=== PATIENT | female | born 1995 | race Caucasian/White ===

== ENCOUNTER 2023-09-05 17:59 | Emergency (ER) | payer BC, SELFPAY ==
--- NOTE | ~2023-09-05 | US_ITS ---
EXAMINATION: US OB <= 14 weeks fetus DATE: 09/05/2023 23:33 INDICATION: Vaginal bleeding at the transition from the first to the second trimester of TECHNIQUE: Real-time pelvic ultrasound utilizing both a transvaginal and transabdominal probe was pe rformed. The interpreting radiologist was not present for the study. COMPARISON: None. FINDINGS: The uterus measures 13.3 x 6.8 x 8.6 cm. There is an intrauterine gestational sac. A yolk sac and fe patria pole are identified. The crown rump length measures 3.8 cm, which correlates with an estimated ge stational age of 13 weeks and 0 days. heart motion is identified measuring 165 beats per minute (bpm) by M-mode Doppler. The placenta appears to be developing posteriorly with no evident subchorio claudia hematoma. The right ovary measures 2.7 x 2.4 x 2.4 cm. The left ovary is not visualized. There is no free fluid in the pelvis. IMPRESSION: 1. Single living fetus with heart of 165 bpm. 2. Gestational age by ultrasound of 13 weeks 0 day(s) +/- 1 week and 1 day with ultrasound estimated date of delivery (GARRETT) of 03/12/2024. Reviewed, dictated and finalized at location A. E TENDER IMPRESSION: 1. Single living fetus with heart of 165 bpm. 2. Gestational age by ultrasound of 13 weeks 0 day(s) +/- 1 week and 1 day wit h ultrasound estimated date of delivery (GARRETT) of 03/12/2024.
[2023-09-05 18:13] VITALS: BP 112/73; PULSE 97; RESP 18; TEMP 36.6; O2SAT 100
[2023-09-05 18:35] LABS: Basophils Percent Auto 0.1 % (0.2-1.2); Eosinophils Percent Auto 0.2 % (0-4.4); Hematocrit 38.2 % (37.0-47.0); Hemoglobin 12.9 g/dL (12.0-15.0); Immature Granulocyte Absolute 0.08 K/mm3 (0.00-0.031); Immature Granulocyte Percent A 0.5 % (0-0.5); Lymphocytes Absolute Auto 3.02 K/mm3 (0.9-3.2); Lymphocytes Percent Auto 17.2 % (18.3-44.2); Mean Corpuscular HGB Conc 33.8 g/dl (32-36); Mean Corpuscular Hemoglobin 30.2 pg (26-34); Mean Corpuscular Volume 89.5 fl (80-100); Mean Platelet Volume 9.2 fl (7.4-10.4); Monocytes Absolute Auto 0.7 K/mm3 (0.1-0.6); Monocytes Percent Auto 3.9 % (2.6-8.5); Neutrophils Absolute Auto 13.8 K/mm3 (1.3-6.7); Neutrophils Percent Auto 78.1 % (45.5-73.1); Platelet Count Result 272 k/mm3 (150-375); Red Blood Count 4.27 M/mm3 (4.2-5.4); Red Cell Distribution Width 12.5 % (11.5-14.5); White Blood Count 17.6 K/mm3 (4.5-10.0)
[2023-09-05 18:45] LABS: Alanine Aminotransferase 15 U/L (6-35); Albumin Level 4.4 g/dL (3.5-5.1); Alkaline Phosphatase 68 U/L (38-126); Anion Gap 6 mmol/L (8-16); Aspartate Amino Transferase 24 U/L (14-36); Bilirubin,Total 0.3 mg/dL (0.2-1.3); Blood Urea Nitrogen 8 mg/dL (7-17); Calcium 9.5 mg/dL (8.4-10.2); Carbon Dioxide 25 mmol/L (22-30); Chloride 104 mmol/L (98-107); Estimated CRCL calculation 156 ml/min; Estimated Glomerular Filt Rate > 60; Glucose 110 mg/dL (65-110); Potassium 3.6 mmol/L (3.4-5.0); Sodium 135 mmol/L (137-145)
[2023-09-05 18:46] LABS: INR 0.9; Prothrombin Time 12.9 Seconds (11.1-14.7)
[2023-09-05 18:47] LABS: Partial Thromboplastin Time 30.1 SECONDS (22.3-36.8)
[2023-09-05 18:49] LABS: Appearance Urine Clear (Clear); Bacteria Urine None Seen /hpf; Bilirubin Urine Negative (Negative); Blood Urine 2+ (Negative); Color Urine Yellow (Yellow); Glucose Urine UA Negative (Negative); Ketones Urine 1+ mg/dL (Negative); Leukocyte Esterase Ur 1+ LEU/UL (Negative); Nitrate Urine Negative (Negative); Non Pathogenic Casts 0-2; Protein Urine Negative (Negative); RBC Urine 0-2 /hpf (0-2); Specific Grav Ur 1.011 (1.001-1.035); Squamous Epithelial Cell Urine Occasional /hpf (Few); Urobilinogen Urine 0.2 mg/dL (<2.0); WBC Urine 21-50 /hpf
[2023-09-05 18:53] LABS: Add Urine Microscopic? YES
--- NOTE | 2023-09-05 22:13 | ED.FEMALEGU ---
HPI - Female Genitourinary General Chief complaint: Vaginal Bleeding Stated complaint: 12 weeks /vb Time Seen by Provider: 09/05/23 21:20 History of Present Illness HPI Narrative: 28-year-old female, , approximately 12.5 weeks gestation reports for evaluation for vaginal bleeding in . Patient states yesterday she noticed pink/red tinged discharged. States she contacted her OBGYNs office who prescribed Flagyl for suspected BV advised her to come to the ER if bleeding worsen. Patient states today around 3-4:00 p.m., she began developing vaginal bleeding. States she has not required pad or tampon in the blood is only there when she wipes. She is also reporting abdominal cramping that started upon arrival to the ED. States she had an ultrasound performed at 8 weeks gestation which confirmed an intrauterine , however I do not have on file. Her OBGYN is Dr. Cm at [facility]. She denies concern for STDs, however does report a yellow foul-smelling discharge that is began in the past few weeks. 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 Denies dysuria or hematuria but does report urinary frequency. Denies fevers, chest pain shortness of breath, lightheadedness or dizziness. Related Data Allergies Allergy/AdvReac Type Severity Reaction Status Date / Time Penicillins AdvReac Rash Verified 09/05/23 18:17 Review of Systems Review of Systems: CONSTITUTIONAL: Denies fever, chills, or sweats. EYES: Denies visual changes, redness, or discharge. ENT: Denies rhinorrhea, congestion, sore throat, or otalgia. CARDIOVASCULAR: Denies chest pain, palpitations, or edema. RESPIRATORY: Denies cough or dyspnea. GASTROINTESTINAL: See HPI GENITOURINARY: See HPI SKIN: Denies rash or itching. MUSCULOSKELETAL: Denies back pain, joint pain, or myalgia. NEUROLOGIC: Denies headache, numbness, or weakness. PSYCHIATRIC: Denies anxiety or depression. Exam Narrative: GENERAL: Well-appearing, well-nourished, and in no acute distress. HEAD: Normocephalic, atraumatic. EYES: PERRLA and EOMI. ENT: Nares clear, no rhinorrhea or epistaxis. Mucous membranes moist. NECK: Supple. CHEST: Clear to auscultation. No respiratory distress. HEART: Regular rate and rhythm. No murmur heard. Normal peripheral pulses. ABDOMEN: Normoactive bowel sounds. Abdomen soft with tenderness in the suprapubic region with voluntary guarding. No rebound or rigidity. No CVA tenderness. : Normal external genitalia and vaginal canals. Scant amount of physiologic discharge and vaginal vault. No blood. Unable to visualize cervix. No CMT or adnexal masses or tenderness. EXTREMITIES: Normal range of motion. No edema. SKIN: Warm, dry, no rash. NEURO: No focal deficits. Alert and oriented x3 Course Vital Signs Vital signs: Vital Signs Temperature 97.8 F 09/05/23 18:13 Pulse Rate 97 09/05/23 18:13 Respiratory Rate 18 09/05/23 18:13 Blood Pressure 112/73 09/05/23 18:13 Pulse Oximetry 100 09/05/23 18:13 Oxygen Delivery Room Air 09/05/23 18:13 Temperature 97.8 F 09/05/23 18:13 Pulse Rate 66 09/05/23 22:37 Respiratory Rate 16 09/05/23 22:37 Blood Pressure 122/69 09/05/23 22:37 Pulse Oximetry 100 09/05/23 22:37 Oxygen Delivery Room Air 09/05/23 18:13 MDM - Female Genitourinary MDM Narrative Medical decision making narrative: 28-year-old female who is , currently 12 and half weeks gestation reports to the emergency department for evaluation for bleeding in . See HPI for further history. Vitals stable. She is nontoxic appearing. No bleeding and vaginal vault on exam, no CMT, see exam above. CBCs remarkable for leukocytosis of 17.6, no bandemia. May be secondary to . Hemoglobin is stable at 12.9. Chemistries are largely unremarkable. UA with 1+ ketones, 1+ leuk esterase and 21-50 wbc's. No bacteruria. She does e
[2023-09-05] MEDS: ACETAMINOPHEN 500 MG TABLET 1000 MG PO (22:34)
[2023-09-05] MEDS: SODIUM CHLORIDE 0.9% IV 1,000 ML 999 ML IV CONT (22:36)
[2023-09-05 22:37] VITALS: BP 122/69; PULSE 66; RESP 16; O2SAT 100
--- NOTE | 2023-09-05 23:51 | PC.NURSE ---
this rn assumed care of patient. this rn took patient report from JYOTSNA Delcid.
[2023-09-06 01:01] VITALS: BP 112/55; PULSE 84; RESP 18; O2SAT 100
== END 2023-09-06 01:10 | disposition home or self-care (01) ==
PROVIDERS: Emergency Medicine; Emergency Provider Physician Assistant; PCP Obstetrics & Gynecology
DX: O20.0 Threatened abortion (principal); O26.891 Other specified pregnancy related conditions, first trimester; R82.998 Other abnormal findings in urine; Z3A.12 12 weeks gestation of pregnancy
CPT/HCPCS: 36415; 76801; 80053; 81001; 84702; 85025; 85461; 85610; 85730; 86850; 86900; 86901; 87086; 96365; 99284; A9270; J0696; J7030

== ENCOUNTER 2023-09-09 01:13 | Observation (INO) | payer BC, SELFPAY ==
[2023-09-09] VITALS (8 sets, daily range): BP systolic 106–125; BP diastolic 50–90; PULSE 87–148; RESP 12–29; TEMP 36.5–37.1; O2SAT 97–100; BMI 25.8
--- NOTE | ~2023-09-09 | US_ITS ---
CORRECTED REPORT corrected examination description [facility] [place]/10/23 This report was recreated on 09/10/23. Original report was [facility] [facility] EXAMINATION: US OB <= 14 weeks fetus w TV DATE: 09/09/2023 16:37 INDICATION: Assess for retained products of conception TECHNIQUE: Real-time pelvic ultrasound utilizing both a transvaginal and transabdominal probe was performed. The interpreting radiologist was not present for the study. COMPARISON: 09/05/2023 FINDINGS: The uterus measures 11.2 x 5.5 x 5.7 cm. The previously visualized intrauterine gestational sac with fetus is no longer visualized consistent with provided history of intervening spontaneous . The endometrial complex is thickened measuring up to 2.7 cm more towards the lower uterine segment with heterogeneous increased echogenicity but without evident internal vascular flow on color Doppler to more specifically suggest retained products of conception and this could also represent residual clot.. Likely section scar along the anterior wall of the lower uterine segment. The bilateral ovaries are not visualized. There is no free fluid in the pelvis. IMPRESSION: 1. Interval spontaneous with no evident intrauterine . 2. Thickened heterogeneously hyperechoic endometrial complex but without evident internal vascular flow on color Doppler which remains equivocal for either clot or avascular retained products of conception. Reviewed, dictated and finalized at location A. FICIAL FLOWERS DYER MTDD IMPRESSION: 1. Interval spontaneous with no evident intrauterine . 2. Thickened heterogeneously hyperechoic endometrial complex but without eviden t internal vascular flow on color Doppler which remains equivocal for either cl ot or avascular retained products of conception.
--- NOTE | 2023-09-09 01:52 | ED.PREGNANCY ---
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 Patient is and currently 13 weeks gestation. She developed vaginal bleeding a few days ago and was seen in the ED on 09/05-09/06, at which time she had a normal ultrasound showing a live IUP. Patient had a follow-up with Dr. Cm, her gas brazer, on Thursday and again had a reassuring exam. On Thursday (09/08), she developed heavier vaginal bleeding. She began having lower abdominal pain and cramping around 6:00 p.m.. Pain became severe at 9:00 p.m.. She then prompted here. Patient reports she feels as though she is actively passing something. Denies nausea, vomiting. Denies fevers. Related Data Allergies Allergy/AdvReac Type Severity Reaction Status Date / Time Penicillins AdvReac Rash Verified 09/05/23 18:17 Review of Systems Review of Systems: CONSTITUTIONAL: Denies fever, chills, or sweats. CARDIOVASCULAR: Denies chest pain. RESPIRATORY: Denies dyspnea. GASTROINTESTINAL: See above. GENITOURINARY: See HPI. All systems reviewed & are unremarkable except as noted in HPI and below PMFSH Social History Social History Smoking status: Never smoker Alcohol intake: never Substance use: current Substance use type: does not use Do You Feel Safe in your Home?: Yes Lack of Transportation: No Lack of Food: Never True Current Housing: I Have Housing Concerned About Future Housing: No Difficulty Paying Gas/Electric Bills: No Difficulty Paying for Meds: No Currently Unemployed: No Education: Bachelor's Degree Difficulty w/ Childcare or Family Care: No Spiritual care concerns: No Exam Narrative: GENERAL: Well appearing, well-nourished, non-toxic, in no acute distress. HEAD: Normocephalic, atraumatic. RESPIRATORY: Airway patent, respirations nonlabored. CARDIOVASCULAR: Tachycardic with regular ABDOMINAL: Soft, nontender, nondistended. Normoactive BS. PELVIC: Amniotic sac visibly protruding from vaginal vault. MUSCULOSKELETAL: Moves all extremities. No gross deformities. SKIN: Warm, dry, normal color. NEURO: A&O X3. Speech clear. PSYCHIATRIC: Anxious, tearful. Normal interaction. Course Vital Signs Vital signs: Vital Signs Temperature 98.8 F 09/09/23 01:16 Respiratory Rate 18 09/09/23 01:16 Blood Pressure 118/50 L 09/09/23 01:16 Pulse Oximetry 98 09/09/23 01:16 Oxygen Delivery Room Air 09/09/23 01:16 Temperature 97.8 F 09/09/23 14:00 Pulse Rate 92 09/09/23 14:00 Respiratory Rate 16 09/09/23 14:00 Blood Pressure 110/60 09/09/23 14:00 Pulse Oximetry 100 09/09/23 14:00 Oxygen Delivery Room Air 09/09/23 08:10 MDM - OB/Uterine Contractions MDM Narrative Medical decision making narrative: Patient actively miscarrying upon my evaluation, visible amniotic sac coming from vagina. Patient fully passed amniotic sac. Dr. Lara, attending at bedside. Amniotic sac placed in specimen container. Will be sent to pathology. Patient with some secondary bleeding, vitals have remained stable. Pain medication given. Discussed case with Dr. Cm, OBGYN, advised if patient's pain and bleeding are persistent, can admit under her service, otherwise will have office call patient today to make f/u appointment. Patient with continued bleeding and fairly consistent pain. She is nervous about going home. Will admit at this time for further evaluation. She is in agreement with this plan. prn pain meds ordered. CBC without the content of 19.9. Hemoglobin 12.1. Beta quant down trending from most recent ED visit, today 31K. Medical Records Attestation: I reviewed t
[2023-09-09] MEDS: SODIUM CHLORIDE 0.9% IV 1,000 ML 999 ML IV CONT (02:02)
[2023-09-09] MEDS: MORPHINE SULFATE (*CRX) 4 MG/ML INJ IV PUSH (02:02)
[2023-09-09] MEDS: ONDANSETRON INJ 4 MG/2 ML VIAL IV PUSH (02:02)
[2023-09-09 02:11] LABS: Basophils Percent Auto 0.2 % (0.2-1.2); Eosinophils Percent Auto 0.2 % (0-4.4); Hemoglobin 12.1 g/dL (12.0-15.0); Immature Granulocyte Absolute 0.09 K/mm3 (0.00-0.031); Immature Granulocyte Percent A 0.5 % (0-0.5); Lymphocytes Absolute Auto 2.88 K/mm3 (0.9-3.2); Lymphocytes Percent Auto 14.5 % (18.3-44.2); Mean Corpuscular HGB Conc 33.6 g/dl (32-36); Mean Corpuscular Hemoglobin 29.9 pg (26-34); Mean Corpuscular Volume 88.9 fl (80-100); Mean Platelet Volume 9.6 fl (7.4-10.4); Monocytes Absolute Auto 1.1 K/mm3 (0.1-0.6); Monocytes Percent Auto 5.3 % (2.6-8.5); Neutrophils Absolute Auto 15.8 K/mm3 (1.3-6.7); Neutrophils Percent Auto 79.3 % (45.5-73.1); Platelet Count Result 316 k/mm3 (150-375); Red Blood Count 4.05 M/mm3 (4.2-5.4); Red Cell Distribution Width 12.6 % (11.5-14.5); White Blood Count 19.9 K/mm3 (4.5-10.0)
[2023-09-09] MEDS: HYDROmorphone HCL INJ (*CRX) 1 MG/ML SYR IV PUSH ×2 (02:14→03:58)
[2023-09-09 02:28] LABS: Appearance Urine Clear (Clear); Bacteria Urine None Seen /hpf; Bilirubin Urine Negative (Negative); Blood Urine 1+ (Negative); Color Urine Yellow (Yellow); Glucose Urine UA Negative (Negative); Ketones Urine 2+ mg/dL (Negative); Leukocyte Esterase Ur Trace LEU/UL (Negative); Nitrate Urine Negative (Negative); Non Pathogenic Casts 0-2; Protein Urine Negative (Negative); Specific Grav Ur 1.016 (1.001-1.035); Squamous Epithelial Cell Urine None seen /hpf (Few); Urobilinogen Urine 0.2 mg/dL (<2.0); WBC Urine 0-5 /hpf; pH Urine 6.5 (5.0-9.0)
--- NOTE | 2023-09-09 02:52 | PC.NURSE ---
Ishan called. Spoke with Faraz. Per Faraz POC released to hospital.
[2023-09-09 03:01] LABS: Add Urine Microscopic? YES
--- NOTE | 2023-09-09 03:16 | PC.NURSE ---
Addendum entered by Tomas Topete RN 09/09/23 03:17: Copy made for for lab. Original in chart. Original Note: Disposition-Notification form filled out. Patient electing for hospital to dispose of remains.
--- NOTE | 2023-09-09 03:17 | PC.NURSE ---
Permit for removal of body form filled out. White copy staying with chart. Beulah and yellow copies going to lab with POC and copy of disposition-notification form.
--- NOTE | 2023-09-09 04:23 | PC.NURSE ---
remains walked down to lab with paperwork
[2023-09-09] MEDS: SODIUM CHLORIDE 0.9% IV 1,000 ML 125 ML IV CONT ×2 (05:35→08:48)
--- NOTE | 2023-09-09 08:15 | PC.NURSE ---
This patient, Leandra Tolbert, was admitted to Medical Room 342-01. Patient/family oriented to hospital policies and general routines including ID bracelet, bed and alarms, visiting hours, pain management, procedures, bathroom and other care routines, personal items, smoking policy, room service/diet, and visiting hours. Information on how to activate the Rapid Response Team has been discussed. Patient/Family are encouraged to report perceived risks to care and to ask questions if they do not understand what they are told or what they should do.
[2023-09-09] MEDS: DOXYCYCLINE HYCLATE 100 MG TABLET PO (08:49)
--- NOTE | 2023-09-09 12:42 | PM.IMHP ---
H&P: HPI History of Present Illness Date/Time: 09/09/23 12:42 Chief Complaint: vaginal bleeding, miscarriage Narrative: Patient is a 28 year old at 13 weeks gestation who presented to the ER for worsening vaginal bleeding and pain since last night. She has had spotting since Tuesday 09/05. She was seen in the office on 09/07 and US showed a viable 13 week with +FHR. There was a small subchorionic hemorrhage adjacent to the gestational sac. She reports that on 09/08 PM, she began having heavier bleeding and worsening abdominal cramping. She presented to the ER where she passed a large amount of tissue resembling a gestational sac. VSS were stable at that time. Bleeding was moderate and pain was slightly improved. She was admitted for pain control and observation. This morning she reports improvement in both pain and bleeding. Minimal bleeding at this time. Denies fevers or chills. No dysuria. Review of Systems Review of Systems: All systems reviewed & are unremarkable except as noted in HPI and below PMFSH Social History Social History Smoking status: Never smoker Alcohol intake: never Substance use: current Substance use type: does not use Do You Feel Safe in your Home?: Yes Lack of Transportation: No Lack of Food: Never True Current Housing: I Have Housing Concerned About Future Housing: No Difficulty Paying Gas/Electric Bills: No Difficulty Paying for Meds: No Currently Unemployed: No Education: Bachelor's Degree Difficulty w/ Childcare or Family Care: No Spiritual care concerns: No Meds Home Medications and Allergies Home Medications Medication Instructions Recorded Confirmed Type cephalexin 500 mg capsule 500 mg PO Q6H #28 caps 09/06/23 09/09/23 Rx Allergies Allergy/AdvReac Type Severity Reaction Status Date / Time Penicillins AdvReac Rash Verified 09/05/23 18:17 Vital Signs Vital Signs - 24 hr 09/09/23 01:16 09/09/23 01:36 09/09/23 03:00 Temperature 98.8 F 98.1 F Pulse Rate 148 H 96 Respiratory Rate 18 29 H 12 Blood Pressure 118/50 L 125/56 L 117/90 Pulse Oximetry 98 100 97 Oxygen Delivery Room Air 09/09/23 04:18 09/09/23 06:22 09/09/23 06:55 Temperature Pulse Rate 90 92 87 Respiratory Rate 15 18 18 Blood Pressure 106/72 114/65 111/62 Pulse Oximetry 100 98 99 Oxygen Delivery 09/09/23 08:28 09/09/23 08:10 Temperature 97.7 F Pulse Rate 90 Respiratory Rate 16 Blood Pressure 123/79 Pulse Oximetry 100 Oxygen Delivery Room Air Exam Const: General: comfortable and no acute distress HENMT: Mouth: Yes moist mucous membranes Eyes: General: appearance normal, both eyes and all related structures Resp: Effort & Inspection: normal respiratory effort Cardio: Rate: regular rate GI: GI Palp: Yes Soft to palpation Skin: General skin exam: normal color Extrem: General: normal to inspection Psych: Mental Status: mental status grossly normal Affect: Sad affect present H&P: Results Labs Labs: Short CBC 09/09/23 Range/Units 01:33 WBC 19.9 H (4.5-10.0) K/mm3 Hgb 12.1 (12.0-15.0) g/dL Hct 36.0 L (37.0-47.0) % Plt Count 316 (150-375) k/mm3 Urine 09/09/23 Range/Units 01:33 Urine Color Yellow (Yellow) Urine Appearance Clear (Clear) Urine pH 6.5 (5.0-9.0) Ur Specific [place] 1.016 (1.001-1.035) Urine Protein Negative (Negative) mg/dL Urine Glucose (UA) Negative (Negative) mg/dL Assessment and Plan Assessment and plan (1) Spontaneous : Code(s): O03.9 - Complete or unspecified spontaneous without complication Status: Acute Assessment and Plan: - patient appears to have passed POC completely in ER as bleeding and pain has improved - VSS, afebrile - Hgb wnl, WBC slightly elevated - pelvic US ordered to r/o retained POC - doxycycline 100mg x1 PO - anticipate discharg
--- NOTE | 2023-09-11 11:19 | PM.DS ---
DS: Admitting Diagnosis Discharge Date 09/09/23 Admitting Diagnosis complete miscarriage at 13 weeks DS: Discharge Diagnosis Discharge Diagnosis (1) Spontaneous : Code(s): O03.9 - Complete or unspecified spontaneous without complication Status: Acute Assessment and Plan: - worsening cramping and bleeding at home prior to presentation, delivered in ER - bleeding and pain improved - pelvic US with no evidence of retained products of conception - f/u in office in 1 week DS: Summary Hospital Course Reason for hospitalization: spontaneous Hospital Course: Patient is a 28 year old who presented at 13 weeks gestation to the ER after worsening bleeding and cramping at home. On admission to the ER, she spontaneously delivered the gestational sac, fetus, and placenta. Bleeding was moderate following delivery however pain improved. She was admitted for further monitoring. While admitted, her pain improved and her bleeding became minimal. She received antibiotics prophylactically and pelvic US demonstrated no retained products of conception. On HD#1 she was stable for discharge with follow up in 1 week in the office. Time Spent with Patient Time attestation: Total time spent providing and/or coordinating discharge services: Exam Const: General: comfortable and no acute distress HENMT: Mouth: Yes moist mucous membranes Eyes: General: appearance normal, both eyes and all related structures Resp: Effort & Inspection: normal respiratory effort Cardio: Rate: regular rate GI: GI Palp: Yes Soft to palpation Skin: General skin exam: normal color Extrem: General: normal to inspection Psych: Mental Status: mental status grossly normal Affect: Sad affect present DS: Data Data Completed and Pending Completed studies during hospitalization: Pending at discharge 09/09/23 01:50 Surgical [PTH] Routine Discharge Plan Discharge Consulting providers: Felix Matos; Marcela Witt Discharging Clinician: Dameon Cm Patient Disposition: Home, Self-Care Activity: as tolerated Diet: regular Discharge Instructions: The office will call you Thursday to set up an appointment. Patient Instructions: Antibiotic Form, Miscarriage (DC) Stand Alone Forms: General Discharge Information Follow-up/Referrals: Dameon Cm MD [Primary Care Provider] - Discharge Medications: Continued cephalexin 500 mg capsule 500 mg PO Q6H Qty: 28 0RF Date of admission: 09/09/23 05:08 Primary Care Provider: Dameon Cm Admitting Provider: Dameon Cm Attending physician on admission: Dameon Cm Condition: Stable
== END 2023-09-09 18:23 | disposition home or self-care (01) ==
LOC: ANHED 05:15 → ANH3MED 07:14
PROVIDERS: Admitting Provider Obstetrics & Gynecology; Emergency Provider Physician Assistant; PCP Obstetrics & Gynecology; Visit Provider Obstetrics & Gynecology
DX: O03.9 Complete or unspecified spontaneous abortion without complication (principal); Z3A.13 13 weeks gestation of pregnancy
CPT/HCPCS: 36415; 76801; 76817; 81001; 84702; 85025; 88305; 96361; 96374; 96375; 96376; 99285; A9270; G0378; J1170; J2270; J2405; J7030

== ENCOUNTER 2023-09-21 01:12 | Day surgery (SDC) | payer BC, SELFPAY ==
[2023-09-18 15:48] VITALS: BMI 25.8
--- NOTE | 2023-09-18 15:52 | PC.NURSE ---
Report to the Outpatient Waiting Room, entrance under the green pavilion located off [facility], at time 1130 on date 09/21/23. Planned Procedure Time: 1330. Time changes happen often and if your time is changed the preop area will call you the afternoon before. - You and your visitor will be asked to self-screen and do not enter if you have any COVID symptoms. - A mask is optional within the hospital at this time. Patients may have clear liquids (water, carbonated beverages, clear teas, apple juice) until 3 hours prior to surgery with a maximum of 20 ounces. - No food from midnight until time of surgery Take the following medications with a SIP of water the morning of surgery: N/A DO NOT STOP ANY OF YOUR OTHER PRESCRIPTION MEDICATIONS PRIOR TO SURGERY ?EXCEPT THE FOLLOWING Medications to discontinue per physician: N/A Date to take last dose: N/A Please no make-up, nail sinhala, hairspray, perfume, deodorant, or body powder the day of surgery. No jewelry (including any body piercings) or valuables the day of surgery, leave them at home. Please take a shower or bath the night before, or the morning of, surgery with an antibacterial soap. Wear comfortable, loose fitting clothing. - Jewelry must be removed prior to entering the operating room. Rings and piercings that are not removed may be cut off. - The hospital will not accept responsibility for valuables. - Please leave all valuables, including medications, at home the day of surgery. If you are going home after surgery, a licensed diesel truck driver must drive you home. - NO public transportation without another adult if you receive anesthesia. - We recommend that an adult stay with you for 24 hours following discharge. - We also recommend that you do not drive, make important decision, drink alcoholic beverages, or take any drugs that were not prescribed by your health care provider for at least 24 hours after your discharge time. Follow any additional instructions given to you from your surgeon. If you or anyone in your household have experienced Covid symptoms in the past week, please notify your surgeon or the nurse liaison at the phone number below for possible testing. Telephone instructions given to PT - GUILLE AMANDA and asked if any additional questions and then verbalized understanding. Patient advised to call surgeon office or pre surgery nurse liaison [phone] if any additional questions.
[2023-09-21] MEDS: ACETAMINOPHEN 500 MG TABLET 1000 MG PO (12:25)
[2023-09-21] MEDS: LACTATED RINGERS 1,000 ML 30 ML IV CONT (12:25)
--- NOTE | 2023-09-21 12:34 | PM.IMHP ---
H&P: HPI History of Present Illness Date/Time: 09/21/23 12:34 Chief Complaint: retained products of conception Narrative: Patient is a 28 year old who presents for suction D&C indicated for retained products of conception after 13 week spontaneous miscarriage on 09/09. She had minimal bleeding since then, however US on 09/17 demonstrated thickened endometrial stripe with vascularity, concerning for retained products of conception. We discussed r/b of expectant vs medical vs surgical management and patient desires to proceed with suction D&C. She denies fevers, chills, abdominal pain, dysuria. PSH significant for PLTCS in prior . Review of Systems Review of Systems: All systems reviewed & are unremarkable except as noted in HPI and below PMFSH Social History Social History Smoking status: Never smoker Alcohol intake: never Alcohol use details: RARE WHEN NOT Substance use: never Substance use type: does not use Do You Feel Safe in your Home?: Yes Lack of Transportation: No Lack of Food: Never True Current Housing: I Have Housing Concerned About Future Housing: No Difficulty Paying Gas/Electric Bills: No Difficulty Paying for Meds: No Currently Unemployed: No Education: Bachelor's Degree Difficulty w/ Childcare or Family Care: No Living arrangements: with family Spiritual care concerns: No Meds Home Medications and Allergies Home Medications Medication Instructions Recorded Confirmed Type No Home Medications 09/18/23 09/18/23 History Allergies Allergy/AdvReac Type Severity Reaction Status Date / Time Penicillins AdvReac Rash Verified 09/18/23 15:48 Exam Const: General: comfortable and no acute distress HENMT: Mouth: Yes moist mucous membranes Eyes: General: appearance normal, both eyes and all related structures Neck: Neck: supple Resp: Effort & Inspection: normal respiratory effort Cardio: Rate: regular rate Skin: General skin exam: normal color Extrem: General: normal to inspection Psych: Mental Status: mental status grossly normal Assessment and Plan Assessment and plan (1) Retained products of conception after miscarriage: Code(s): O03.4 - Incomplete spontaneous without complication Status: Acute Assessment and Plan: - patient reports minimal bleeding and pain since miscarriage - VSS, afebrile - exam wnl - US 09/17 demonstrated thickened endometrium with vascularity, concerning for retained products of conception - r/b of expectant, medical and surgical management discussed with patient - patient desires suction D&C, r/b rediscussed today in pre-op - will proceed with suction D&C
--- NOTE | 2023-09-21 12:36 | WPDANESEPP ---
Anes - Eval Pre Procedure Procedure: Operation Date: 09/21/23 13:30 Proposed Procedures p Suction Dilation and Curettage - Dameon Cm MD Date/Time: 09/21/23 12:36 Pre Op Diagnosis: Retained Products of Conception Patient Data Age: 28 Gender: F Height: 1.68 m Weight: 72.6 kg Allergies Allergy/AdvReac Type Severity Reaction Status Date / Time Penicillins AdvReac Rash Verified 09/18/23 15:48 Home Medications Medication Instructions Recorded Confirmed Type No Home Medications 09/18/23 09/18/23 History Patient hx anesthesia problems: none Family hx anesthesia problems: none Results Review: All pre-operative results and documents have been reviewed as part of the pre-operative evaluation. [facility] Social History Social History Smoking status: Never smoker Alcohol intake: never Alcohol use details: RARE WHEN NOT Substance use: never Substance use type: does not use Do You Feel Safe in your Home?: Yes Lack of Transportation: No Lack of Food: Never True Current Housing: I Have Housing Concerned About Future Housing: No Difficulty Paying Gas/Electric Bills: No Difficulty Paying for Meds: No Currently Unemployed: No Education: Bachelor's Degree Difficulty w/ Childcare or Family Care: No Living arrangements: with family Spiritual care concerns: No Exam Day of Procedure 09/21/23 12:36 Patient weight: overweight Heart: regular rate and rhythm Lungs: clear to auscultation Airway: Mallampati scale class II Neurological: alert and oriented
--- NOTE | 2023-09-21 12:40 | P.PNAN_ITS ---
Anes - Eval Final PreProcedure Day of Procedure 09/21/23 12:40 Patient weight: normal Heart: regular rate and rhythm Lungs: clear to auscultation Airway: Mallampati scale class II Neurological: alert and oriented Last oral intake: >/= 8 hours ASA classification: II Emergent: no Anesthetic plan: proceed Anesthesia type and monitoring: general GIVS and standard monitoring Results Review: All pre-operative results and documents have been reviewed as part of the pre- operative evaluation. Informed Consent: The patient's anesthetic plan and its attendant risks and benefits were discussed with the patient/family/POA. Questions were solicited and answers provided to the satisfaction of the patient/family/POA.
--- NOTE | 2023-09-21 12:47 | WPDHPUPDATE1 ---
History and Physical Update Update Date/Time: 09/21/23 12:47 History and Physical has been reviewed, including an updated exam of the patient. There are NO changes in the patient's condition. Risks, benefits, and alternatives have been discussed and questions answered. Patient agrees to proceed with procedure.
[2023-09-21 13:02] VITALS: BP 136/51; PULSE 89; RESP 14; TEMP 36.4; O2SAT 100
[2023-09-21 13:22] VITALS: BP 119/98; PULSE 102; RESP 16; O2SAT 99
--- NOTE | 2023-09-21 13:49 | W.PM.PROC2 ---
Procedure Note - Detailed Date of Procedure 09/21/23 Pre-op Diagnosis Retained Products of Conception Post-op Diagnosis Same Procedure Performed suction D&C Surgeon Dameon Cm MD Anesthesia MAC Indications retained products of conception s/p 13 week spontaneous miscarriage Description of Procedure The patient was then taken to the operating room with IVFs running. She was placed in the dorsal supine position where she received MAC anesthesia without any difficulty.?? The patient was placed in the dorsal lithotomy position using kenan stirrups. She was then prepped and draped in a normal sterile fashion. A time-out procedure was performed and all members of the OR team agreed on the patient and plan. A bivalved speculum was then inserted into the patient's vagina.? The anterior lip of the cervix was grasped with a single tooth tenaculum. The cervical os was dilated using vita dilators to accommodate a 8mm curette.? The suction curette was tested outside the patient and found to be working properly.? The curette was then advanced into the intrauterine cavity and circumferentially removed.? All products of conception were removed until little tissue was seen passing through the tubing.? A sharp curettage was then performed until a gritty texture was noted.? The specimen was sent to pathology.? The single tooth tenaculum was removed from the anterior lip of the cervix and made hemostatic with silver nitrite sticks.? The bivalve speculum was removed.? The patient tolerated the procedure well.? Sponge, lap, needle, and instrument counts were correct.? The patient was awakened from anesthesia and taken to the recovery room in stable condition. Estimated Blood Loss 25 Pathology Yes Complications No immediate complications Disposition Same day
[2023-09-21 13:50] VITALS: BP 106/51; PULSE 79; RESP 20
[2023-09-21 14:20] VITALS: BP 110/54; PULSE 80; RESP 20
[2023-09-21 14:50] VITALS: BP 103/51; PULSE 82; RESP 20
[2023-09-21 15:20] VITALS: BP 97/50; PULSE 94; RESP 20
== END 2023-09-21 15:30 | disposition home or self-care (01) ==
PROVIDERS: Referring Provider Obstetrics & Gynecology; Visit Provider Obstetrics & Gynecology
PROC: (CPT 59812; principal; 2023-09-21 13:30)
DX: O03.4 Incomplete spontaneous abortion without complication (principal); O02.89 Other abnormal products of conception; O08.9 Unspecified complication following an ectopic and molar pregnancy
CPT/HCPCS: 59812; 88305; A9270; J1200; J2250; J2704; J3010; J7120

== ENCOUNTER 2025-01-12 10:03 | Outpatient (CLI) | payer BC, OTHER, SELFPAY ==
--- NOTE | ~2025-01-12 | MMUS_ITS ---
EXAMINATION: MM diagnostic maria elena BI w francheska, US breast BI limited HISTORY: Bilateral breast lumps TECHNIQUE: 3-D tomosynthesis images of the breasts were performed and synthetic 2-D images were gener ated. CAD analysis was submitted and interpreted. High resolution limited bilateral breast ultrasound was performed. COMPARISON: None BREAST PARENCHYMAL COMPOSITION:Dense: The breasts are extremely dense, which lowers the sensitivity o f mammography. FINDINGS: MAMMOGRAPHIC FINDINGS: No suspicious mass lesion or distortion seen. No suspicious parenchymal calcification seen. No suspic ious mammographic abnormality identified. ULTRASOUND: At the 1:00 position left breast, 12 cm from the nipple, there is a 1.6 x 1.3 x 1.4 cm hypoechoic himanshu id mass, circumscribed, wider than tall. Scanning in the 12:00 position right breast demonstrate no d iscrete mass or cyst. There is fibroglandular tissue in this region. IMPRESSION: 1.6 x 1.3 x 1.4 cm probable benign mass at the 1:00 position left breast, as detailed above, most li cristiana fibroadenoma. Six-month follow-up ultrasound recommended to reassess. BI-RADS category 3, probably benign findings. Reviewed, dictated and finalized at location M. 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 Six-month follow-up ultrasound recomme nded to reassess. BI-RADS category 3, probably benign findings.
== END 2025-01-12 10:04 | disposition home or self-care (01) ==
LOC: ANHIMG 10:08
PROVIDERS: PCP Nurse Practitioner; Visit Provider Nurse Practitioner
DX: N63.0 Unspecified lump in unspecified breast (principal); R92.8 Other abnormal and inconclusive findings on diagnostic imaging of breast
CPT/HCPCS: 76642; 77062; 77066; G0279

== ENCOUNTER 2025-02-14 03:31 | Day surgery (SDC) | payer BC, OTHER, SELFPAY ==
--- NOTE | 2025-02-07 09:28 | SUR.PREOP ---
Report to the Outpatient Waiting Room, entrance under the green pavilion located off [facility], at time _0830_ on date _02/14/2025_. Planned Procedure Time: _1030_.? Time changes happen often and if your time is changed the preop area will call you the afternoon before. - You and your visitor will be asked to self-screen and do not enter if you have any COVID symptoms. Please call surgeon if you need to reschedule. - A mask is optional within the hospital at this time. Patients may have clear liquids (water, carbonated beverages, clear teas, apple juice) until 3 hours (0730) prior to surgery with a maximum of 20 ounces. - No food from midnight until time of surgery and no smoking, or chewing tobacco (or any form of nicotine). No chewing gum, candy or mints. - Infants may have breast milk until 4 hours before surgery, infant formula 6 hours prior to surgery. - Children will be allowed to drink immediately following surgery.? If applicable, please bring a bottle or sippy cup to assist with drinking. Juice, water, soda, and popsicles are readily available.? For infants on formula, please bring formula the day of surgery.? Pacifiers are allowed. Take only the following medications with a SIP of water on the morning of surgery: _NA_ DO NOT STOP ANY OF YOUR OTHER PRESCRIPTION MEDICATIONS PRIOR TO SURGERY EXCEPT THE FOLLOWING Hold all vitamins and supplements for 3 days per anesthesiologist. Medications to discontinue per physician _NA_ Date to take last dose_NA_ Please no make-up, nail [place], hairspray, perfume, deodorant, or body powder the day of surgery.? No jewelry (including any body piercings) or valuables the day of surgery, leave them at home.? Please take a shower or bath the night before, or the morning of, surgery with an antibacterial soap.? Wear comfortable, loose fitting clothing.? Children are encouraged to wear pajamas. - Jewelry must be removed prior to entering the operating room.? Rings and piercings that are not removed may be cut off. - The hospital will not accept responsibility for valuables.? - Please leave all valuables, including medications, at home the day of surgery. If you are going home after surgery, a licensed box truck driver must drive you home.? - NO public transportation without another adult if you receive anesthesia. - We recommend that an adult stay with you for 24 hours following discharge. - We also recommend that you do not drive, make important decision, drink alcoholic beverages, or take any drugs that were not prescribed by your health care provider for at least 24 hours after your discharge time. For Pediatric surgeries, we recommend two adults accompany the child home. Follow any additional instructions given to you from your surgeon. Telephone instructions given to _DESMONDY_and asked if any additional questions and then verbalized understanding. Patient advised to call surgeon office or pre surgery nurse liaison [phone] if any additional questions.
[2025-02-07 09:34] VITALS: BMI 26.6
[2025-02-14] VITALS (9 sets, daily range): BP systolic 94–124; BP diastolic 45–82; PULSE 57–82; RESP 16–18; TEMP 36.6–37; O2SAT 99–100
--- OUTSIDE RECORDS SUMMARY | 2025-02-14 03:35 | XMS_ITS | Data Portability ---
Author Organization [facility] [place] Address [address] [place] [address] [place] [address] Assessment No assessment recorded. Plan of Treatment Reminders Order Date Submit Date Provider Last Modified By Organization Details Last Modified Time Details Appointments None recorded. Lab None recorded. Referral None recorded. Procedures None recorded. Surgeries suction dilation & curettage (SURG) 2023 024 [facility] Surgery [facility], [facility] [address], [place], [address], 4 14:52:55 Imaging MAMMO, diagnostic, digital, bilateral 2024 025 [facility] (Mammography) , [address], [place], [address], 5 09:08:42 US, breast, bilateral, complete - left breast lump at 1-2 oclock, right breast lumps at 12 oclock 2024 025 [facility] (Mammography) , [address], [place], [address], 5 04:07:50 US, obstetric, transvagina l [address], [facility] [address], [address], [place], [address], 4 19:51:29 US, obstetric, transvagina l [address], [address], [place], [address], 4 19:59:08 Medication Orders metronidazo le 500 mg tablet 2024 025 [id number], [address] [place], [address], 5 17:32:05 Lo Loestrin Fe 1 mg-10 mcg (24)/10 mcg (2) tablet 2024 025 [id number], [address] [place], [address], 5 17:32:26 Lo Loestrin Fe 1 mg-10 mcg (24)/10 mcg (2) tablet 2023 024 [id number], [address], [place], [place], [id number], 4 23:22:50 Patient TargetsNo targets recorded. Patient InstructionsNo instructions recorded. Reason for Referral None Reported. Results Created Date Observation Date Name Description Value Unit Range Abnormal Flag Note LastModifiedBy Organization Detail LastModifiedTime 09/13/19 24 09/13/2023 [UNIT Y] ANEUP LOIDY NIPT fraction 8.8% normal Not Available [facility] [address] [facility], [place], [address], 09/13/2023 15:59:36 09/13/19 24 09/13/2023 [UNIT Y] ANEUP LOIDY NIPT Rh(D) nipt normal DETEC BIMAL - If pregn ant patie nt is RhD negat jazmín, this indic ates an RhD posit jazmín fetus . If pregn ant patie nt is RhD posit jazmín, this resul t is not clini rochelle relev ant and could refle ct or mater nal RhD. Not Available [facility] [address] [facility], [place], [address], 09/13/2023 15:59:36 09/13/19 24 09/13/2023 [UNIT Y] ANEUP LOIDY NIPT sex chromosome aneuploidy NOT DETECT ED normal Not Available [facility] [address] [facility], [place], [address], 09/13/2023 15:59:36 09/13/19 24 09/13/2023 [UNIT Y] ANEUP LOIDY NIPT monosomy X LOW RISK <1 in 10,000 normal Not Available [facility] [address] [facility], [place], [address], 09/13/2023 15:59:36 09/13/19 24 09/13/2023 [UNIT Y] ANEUP LOIDY NIPT trisomy 13 LOW RISK <1 in 10,000 normal Not Available [facility] [address] [place], [address], 09/13/2023 15:59:36 09/13/19 24 09/13/2023 [UNIT Y] ANEUP LOIDY NIPT trisomy 18 LOW RISK <1 in 10,000 normal Not Available [facility] [address] [facility], [place], [address], 09/13/2023 15:59:36 09/13/19 24 09/13/2023 [UNIT Y] ANEUP LOIDY NIPT trisomy 21 LOW RISK <1 in 10,000 normal Not Available [facility] [address] [place], [address], 09/13/2023 15:59:36 09/13/19 24 09/13/2023 [UNIT Y] ANEUP LOIDY NIPT sex MALE normal Not Available [facility] [address] [place], [address], 09/13/2023 15:59:36 09/13/19 24 09/13/2023 [UNIT Y] ANEUP LOIDY NIPT gestation SINGLE TON normal Not Available [facility] [address] [place], [address], 09/13/2023 15:59:36 09/13/19 24 09/13/2023 [UNIT Y] ANEUP MONYIDMichelle NIPT for detailed report, see pdf See PDF normal Not Available [facility] [address], [place], [address], 09/13/2023 15:59:36 09/07/19 24 09/07/2023 CBC W/DIF F WBC 16.4 10'3/ uL 3.5-10 .5 high Not Available [facility] (Lab) [address], [place], [address], 09/08/2023 13:39:54 09/07/19 24 09/07/2023 CBC W/DIF F RBC 4.13 10'6/ uL (based on docume nted legal sex) 3.80-5 .20 Not Available [facility] (Lab) [address], [place], [address], 09/08/2023 13:39:54 09/07/19 24 09/07/2023 CBC W/DIF F HGB 12.3 g/dL (based on docume nted legal sex) 11.6-1 5.4 Not Available [facility] (Lab) [address], [place], [address], 09/08/2023 13:39:54 09/07/19 24 09/07/2023 CBC W/DIF F HCT 37.4 % (based on docume nted legal sex) 34.0-4 5.0 Not Available [facility] (Lab) [address], [place], [address], 09/08/2023 13:39:54 09/07/19 24 09/07/2023 CBC W/DIF F MCV 90.6 fL 80.0-9 9.0 Not Available [facility] (Lab) [address], [place], [address], 09/08/2023 13:39:54 09/07/19 24 09/07/2023 CBC W/DIF F MCH 29.8 pg 27.0-3 4.0 Not Available [facility] (Lab) [address], [place], [address], 09/08/2023 13:39:54 09/07/19 24 09/07/2023 CBC W/DIF F MCHC 32.9 g/dL 32.0-3 5.5 Not Available [facility] (Lab) [address], [place], [address], 09/08/2023 13:39:54 09/07/19 24 09/07/2023 CBC W/DIF F RDW 13.0 % 11.0-1 5.0 Not Available [facility] (Lab) [address], [place], [address], 09/08/2023 13:39:54 09/07/19 24 09/07/2023 CBC W/DIF F plt 320 10'3/ uL 150-40 0 Not Available [facility] (Lab) [address], [place], [address], 09/08/2023 13:39:54 09/07/19 24 09/07/2023 CBC W/DIF F MPV 10.2 fL 8.8-12 .1 Not Available [facility] (Lab) [address], [place], [address], 09/08/2023 13:39:54 09/07/19 24 09/07/2023 CBC W/DIF F NRBC's 0.0 % 0.0 Not Available [facility] (Lab) [address], [place], [address], 09/08/2023 13:39:54 09/07/19 24 09/07/2023 CBC W/DIF F absolute NRBCs 0.0 10'3/ uL 0.0 Not Available [facility] (Lab) [address], [place], [address], 09/08/2023 13:39:54 09/07/19 24 09/07/2023 CBC W/DIF F neutrophils 81.8 % 34.0-7 3.0 high Not Available [facility] (Lab) [address] [facility], [place], [address], 09/08/2023 13:39:54 09/07/19 24 09/07/2023 CBC W/DIF F lymphocytes 13.1 % 15.0-5 0.0 low Not Available [facility] (Lab) [address] [facility], [place], [address], 09/08/2023 13:39:54 09/07/19 24 09/07/2023 CBC W/DIF F monocytes 4.3 % 1.0-15 .0 Not Available [facility] (Lab) [address] [facility], [place], [address], 09/08/2023 13:39:54 09/07/19 24 09/07/2023 CBC W/DIF F eosinophils 0.2 % 0.0-8. 0 Not Available [facility] (Lab) [address] [facility], [place], [address], 09/08/2023 13:39:54 09/07/19 24 09/07/2023 CBC W/DIF F basophils 0.2 % 0.0-2. 0 Not Available [facility] (Lab) [address] [place], [address], 09/08/2023 13:39:54 09/07/19 24 09/07/2023 CBC W/DIF F immature granulocytes 0.4 % no define d refere nce range Not Available [facility] (Lab) [address] [place], [address], 09/08/2023 13:39:54 09/07/19 24 09/07/2023 CBC W/DIF F absolute neutrophils 13.4 10'3/ uL 1.5-8. 0 high Not Available [facility] (Lab) [address] [facility], [place], [address], 09/08/2023 13:39:54 09/07/19 24 09/07/2023 CBC W/DIF F absolute lymphocytes 2.1 10'3/ uL 1.0-4. 0 Not Available [facility] (Lab) [address] [facility], [place], [address], 09/08/2023 13:39:54 09/07/19 24 09/07/2023 CBC W/DIF F absolute monocytes 0.7 10'3/ uL 0.2-1. 0 Not Available [facility] (Lab) [address] [facility], [place], [address], 09/08/2023 13:39:54 09/07/19 24 09/07/2023 CBC W/DIF F absolute eosinophils 0.0 10'3/ uL 0.0-0. 6 Not Available [facility] (Lab) [address] [facility], [place], [address], 09/08/2023 13:39:54 09/07/19 24 09/07/2023 CBC W/DIF F absolute basophils 0.0 10'3/ uL 0.0-0. 3 Not Available [facility] (Lab) [address] [facility], [place], [address], 09/08/2023 13:39:54 09/07/19 24 09/07/2023 CBC W/DIF F absolute immature granulocytes 0.1 10'3/ uL 0.00-0 .10 2023 1:55 AM: P indic ates parti al resul ts on a panel have been relea sed. Addit ional resul ts will follo w. 2023 1:55 AM: This resul t has been final verif ied. No addit ional or lyon ed resul ts are expec bimal. Not Available [facility] (Lab) [address] [facility], [place], [address], 09/08/2023 13:39:54 09/07/19 24 09/07/2023 HEPAT ITIS B SURFA CE ANTIG EN hepatitis B surface antigen Non-re active non-re active This assay was perfo rmed using [employer] n reage nts and test kits. Value s obtai andrez with other assay metho ds or kits canno t be used inter lyon eably . Not Available [facility] (Lab) [address] [facility], [place], [address], 09/08/2023 13:39:55 09/07/19 24 09/07/2023 HEPAT ITIS C ANTIB ADELA SCREE N, REFLE X TO CONFI RMATI ON hepatitis C antibody Non-re active non-re active Antib odies to HCV Not Detec bimal, does not exclu de the possi bilit y of expos ure to HCV. Not Available [facility] (Lab) [address] [facility], [place], [address], 09/08/2023 13:39:55 09/07/19 24 09/07/2023 HIV 1/2 ANTIG EN/AN TIBOD Y, REFLE X CONFI RMATI ON HIV antigen/anti body Nonrea ctive nonrea ctive HIV-1 antig en and HIV-1 /HIV- 2 antib odies were not detec bimal. No labor atory evide nce of HIV infec tion. Not Available [facility] (Lab) [address] [place], [address], 09/08/2023 13:39:55 09/07/19 24 09/07/2023 RUBEL LA IGG ANTIB ADELA, QUANT rubella antibodies, IgG Reacti ve reacti ve Not Available [facility] (Lab) [address] [place], [address], 09/08/2023 13:39:56 09/07/19 24 09/07/2023 RUBEL LA IGG ANTIB ADELA, QUANT rubella antibodies, IgG quant 18.2 IU/mL >=10 Non-r eacti ve (Non- Immun e) <10 IU/mL React jazmín (Immu ne) > or = 10 IU/mL Not Available [facility] (Lab) [address], [place], [address], 09/08/2023 13:39:56 09/07/19 24 09/07/2023 HEMOG LOBIN A1C hemoglobin A1C 5.3 % 0-5.6 The Ameri can Diabe sakina Ass[employer] iatio n recom mends that a prima ry goal of thera py byron d be a HBA1C of < 7% and that physi cians shoul d reeva luate the treat ment regim en in patie nts with HBA1C value s consi stent ly > 8%. <5.7% Vikki l 5.7 - 6.4% Incre ased risk for diabe sakina >=6.5 % Diagn ostic of diabe sakina <7.0% Goal of thera py >8.0% Actio n sugge sted Not Available [facility] (Lab) [address], [place], [address], 09/08/2023 13:39:56 09/07/19 24 09/07/2023 TYPE/ RH/SC REEN ABO/Rh type A POS Not Available [facility] (Lab) [address], [place], [address], 09/08/2023 13:39:57 09/07/19 24 09/07/2023 TYPE/ RH/SC REEN antibody screen NEG Not Available [facility] (Lab) [address], [place], [address], 09/08/2023 13:39:57 09/07/19 24 09/07/2023 TYPE/ RH/SC REEN exp date 2023 23:59 Not Available [facility] (Lab) [address], [place], [address], 09/08/2023 13:39:57 09/07/19 24 09/07/2023 RPR SCREE N, REFLE X TITER /CONF IRMAT ION RPR screen Nonrea ctive nonrea ctive Not Available [facility] (Lab) [address] [place], [address], 09/08/2023 13:39:57 09/07/19 24 09/07/2023 CULTU RE: URINE result report SEE RESULT S BELOW Test: Cultu re: Urine Speci men Sourc e: Urine Voide d Speci men Type: Urine Speci men Date: 2023 4:17 PM Resul t Date: 2023 5:45 AM Resul t Statu s: Final resul t Abnor mal: No Resul ting Lab: [facility] [address] [facility] [address] Tel: CULTU RE ----- ----- ----- --- No growt h in 1 day (dete ction level of 10,00 0 colon ies / ml.) Not Available [facility] (Lab) [address] [facility], [place], [address], 09/09/2023 06:48:14 09/07/19 24 09/07/2023 drug scree n, urine Amphetamines : negati ve Not Available [place] [address], [place], [address], 09/07/2023 17:36:41 09/07/19 24 09/07/2023 drug scree n, urine Cannabinoids : negati ve Not Available [place] [address], [place], [address], 09/07/2023 17:36:41 09/07/19 24 09/07/2023 drug scree n, urine Cocaine: negati ve Not Available [place] [address], [place], [address], 09/07/2023 17:36:41 09/07/19 24 09/07/2023 drug scree n, urine Opiates: negati ve Not Available [place] [address], [place], [address], 09/07/2023 17:36:41 09/07/19 24 09/07/2023 drug scree n, urine Phenocyclidi ne: negati ve Not Available [place] [address], [place], [address], 09/07/2023 17:36:41 09/07/19 24 09/07/2023 drug scree n, urine Barbiturates : negati ve Not Available [place] [address], [place], [address], 09/07/2023 17:36:41 09/07/19 24 09/07/2023 drug scree n, urine Benzodiazepi marina: negati ve Not Available [place] [address], [place], [address], 09/07/2023 17:36:41 09/07/19 24 09/07/2023 drug scree n, urine Ethanol: negati ve Not Available [place] [address], [place], [address], 09/07/2023 17:36:41 09/07/19 24 09/07/2023 drug scree n, urine Hallucinogen s: negati ve Not Available [place] [address], [place], [address], 09/07/2023 17:36:41 09/07/19 24 09/07/2023 drug scree n, urine Inhalants: negati ve Not Available [place] [address], [place], [address], 09/07/2023 17:36:41 09/15/19 25 09/15/2024 WOMEN 'S HEALT H SWAB, HALEY bacterial vaginosis (bv), tma Negati ve negati ve This test detec ts ribos omal RNA from bacte clifton assoc iated with bacte rial vagin osis (BV), inclu ding Lacto bacil misael (L. gasse ri, L. crisp atus and L. jense cheo), Gardn erell a vagin josi, and Atopo bium vagin ae by Trans cript ion-M ediat ed Ampli ficat ion (TMA) . A singl e quali tativ e resul t is repor bimal based on instr ument softw are to deter mine BV posit jazmín or negat jazmín statu s. Not Available [facility] (Lab) [address] [place], [address], 09/20/2024 09:52:57 09/15/19 25 09/15/2024 WOMEN 'S HEALT H SWAB, HALEY cele species, tma Negati ve negati ve Not Available [facility] (Lab) [address] [place], [address], 09/20/2024 09:52:57 09/15/19 25 09/15/2024 WOMEN 'S HEALT H SWAB, HALEY cele glabrata, tma Negati ve negati ve Not Available [facility] (Lab) [address] [place], [address], 09/20/2024 09:52:57 09/15/19 25 09/15/2024 WOMEN 'S HEALT H SWAB, HALEY trichomonas vaginalis, tma Negati ve negati ve This assay tests for and diffe renti ates betwe en Bernice da glabr cici, the Bernice da speci es group (C. albic ans, C. tropi calis , C. parap aba is, C. dubli zoraida is), and Trich omona s vagin josi by Trans cript ion-M ediat ed Ampli ficat ion (TMA) . Not Available [facility] (Lab) [address] [place], [address], 09/20/2024 09:52:57 09/15/19 25 09/15/2024 IMAGE GUIDE D PAP AND HPV REGAR DLESS image guided Pap, HPV regardless of Pap result SEE RESULT S BELOW CASE REPOR T: Cytol ogy Gynec ologi james Repor t Case: [id number] Autho cony ludwig Provi nallely: Lacey Moore, ELTON Baum cted: 09/15 1645 Order ing Locat ion: [place] Patho earle Lundberg nirmal: 09/16 0744 First Scree n: Georgia mendez, Duong ed, CT Rescr een: Quin Merritt, CT Speci men: Antony feng Pap - Image d, Cervi x STATE MENT OF ADEQU ACY: Satis facto ry for evalu ation Trans forma tion zone compo nent prese nt ----- ----- ----- ----- ----- ----- ----- ----- ----- ----- ----- ----- ----- ----- ----- ----- ----- ---- FINAL DIAGN OSIS: Negat jazmín for Intra epith elial Lesio gary or Reshma elliott (NIL) . 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 COMME NT: This speci men was revie wed by a Cytot echno logis t and/o r Patho logis t (as indic ated in this repor t) after evalu ation using the Thinp rep Imagi ng Syste m. CLINI JAMES INFOR MATIO N: Menst rual Statu s: LMP (if appli cable ): Clini james Histo ry/Pr eviou s Pap: Type of Neopl judith (if appli cable ): Signi fican t Clini james Findi ngs: Other Histo ry: Hormo marina (if appli cable ): PAP EDUCA BARTOLO L NOTE: The Pap Test is a scree jung test with an inher ent false negat jazmín rate. Liqui d-bas ed sampl ing may decre ase, but will not elimi jazmyn, false negat jazmín resul ts. A negat jazmín resul t does not precl ude the prese nce and/o r devel opmen t of disea se, since the prese nce of abnor mal cells in the sampl e depen ds on the locat ion of the lesio n and sampl ing techn ique. Faye nued regul ar scree jung is the best metho d of cance r preve ntion . If repor bimal cytol ogic findi ng do not corre late with physi james and/o r histo rical findi ngs, furth er inves tigat ion is recom lawrence d, as clini rochelle patel nted. Not Available [facility] (Lab) [address] , [place], [address], 09/20/2024 09:52:58 12/24/19 25 12/23/2024 CBC W/DIF F WBC 7.8 10'3/ uL 3.5-10 .5 Not Available [facility] (Lab) [address] , [place], [address], 12/24/2024 11:27:17 12/24/19 25 12/23/2024 CBC W/DIF F RBC 4.30 10'6/ uL (based on docume nted legal sex) 3.80-5 .20 Not Available [facility] (Lab) [address] , [place], [address], 12/24/2024 11:27:17 12/24/19 25 12/23/2024 CBC W/DIF F HGB 13.0 g/dL (based on docume nted legal sex) 11.6-1 5.4 Not Available [facility] (Lab) [address], [place], [address], 12/24/2024 11:27:17 12/24/19 25 12/23/2024 CBC W/DIF F HCT 39.5 % (based on docume nted legal sex) 34.0-4 5.0 Not Available [facility] (Lab) [address], [place], [address], 12/24/2024 11:27:17 12/24/19 25 12/23/2024 CBC W/DIF F MCV 91.9 fL 80.0-9 9.0 Not Available [facility] (Lab) [address], [place], [address], 12/24/2024 11:27:17 12/24/19 25 12/23/2024 CBC W/DIF F MCH 30.2 pg 27.0-3 4.0 Not Available [facility] (Lab) [address], [place], [address], 12/24/2024 11:27:17 12/24/19 25 12/23/2024 CBC W/DIF F MCHC 32.9 g/dL 32.0-3 5.5 Not Available [facility] (Lab) [address], [place], [address], 12/24/2024 11:27:17 12/24/19 25 12/23/2024 CBC W/DIF F RDW 13.2 % 11.0-1 5.0 Not Available [facility] (Lab) [address], [place], [address], 12/24/2024 11:27:17 12/24/19 25 12/23/2024 CBC W/DIF F plt 277 10'3/ uL 150-40 0 Not Available [facility] (Lab) [address] [place], [address], 12/24/2024 11:27:17 12/24/19 25 12/23/2024 CBC W/DIF F MPV 10.8 fL 8.8-12 .1 Not Available [facility] (Lab) [address], [place], [address], 12/24/2024 11:27:17 12/24/19 25 12/23/2024 CBC W/DIF F NRBC's 0.0 % 0.0 Not Available [facility] (Lab) [address], [place], [address], 12/24/2024 11:27:17 12/24/19 25 12/23/2024 CBC W/DIF F absolute NRBCs 0.0 10'3/ uL no refere nce range establ ished Not Available [facility] (Lab) [address], [place], [address], 12/24/2024 11:27:17 12/24/19 25 12/23/2024 CBC W/DIF F neutrophils 55.9 % 34.0-7 3.0 Not Available [facility] (Lab) [address], [place], [address], 12/24/2024 11:27:17 12/24/19 25 12/23/2024 CBC W/DIF F lymphocytes 35.3 % 15.0-5 0.0 Not Available [facility] (Lab) [address], [place], [address], 12/24/2024 11:27:17 12/24/19 25 12/23/2024 CBC W/DIF F monocytes 6.9 % 1.0-15 .0 Not Available [facility] (Lab) [address], [place], [address], 12/24/2024 11:27:17 12/24/19 25 12/23/2024 CBC W/DIF F eosinophils 1.3 % 0.0-8. 0 Not Available [facility] (Lab) [address], [place], [address], 12/24/2024 11:27:17 12/24/19 25 12/23/2024 CBC W/DIF F basophils 0.3 % 0.0-2. 0 Not Available [facility] (Lab) [address] [facility], [place], [address], 12/24/2024 11:27:17 12/24/19 25 12/23/2024 CBC W/DIF F immature granulocytes 0.3 % no define d refere nce range Immat ure Granu locyt es (IG) repre sents autom ated enume ratio n of Metam yeloc ytes, Myelo cytes and Promy elocy sakina when IG is < 5%. Blast s are not inclu ded in IG and repor bimal separ ately if prese nt. Not Available [facility] (Lab) [address] [facility], [place], [address], 12/24/2024 11:27:17 12/24/19 25 12/23/2024 CBC W/DIF F absolute neutrophils 4.4 10'3/ uL 1.5-8. 0 Not Available [facility] (Lab) [address] [facility], [place], [address], 12/24/2024 11:27:17 12/24/19 25 12/23/2024 CBC W/DIF F absolute lymphocytes 2.7 10'3/ uL 1.0-4. 0 Not Available [facility] (Lab) [address] [facility], [place], [address], 12/24/2024 11:27:17 12/24/19 25 12/23/2024 CBC W/DIF F absolute monocytes 0.5 10'3/ uL 0.2-1. 0 Not Available [facility] (Lab) [address] [facility], [place], [address], 12/24/2024 11:27:17 12/24/19 25 12/23/2024 CBC W/DIF F absolute eosinophils 0.1 10'3/ uL 0.0-0. 6 Not Available [facility] (Lab) [address], [place], [address], 12/24/2024 11:27:17 12/24/19 25 12/23/2024 CBC W/DIF F absolute basophils 0.0 10'3/ uL 0.0-0. 3 Not Available [facility] (Lab) [address], [place], [address], 12/24/2024 11:27:17 12/24/19 25 12/23/2024 CBC W/DIF F absolute immature granulocytes 0.0 10'3/ uL 0.00-0 .10 Refer ence range s for nonbi nary/ inter sex or unspe cifie d gende r patie nts have not been estab lishe d. Pleas e refer to the follo wing table for range s estab lishe d for cisge nder patie nts and evalu ate in the clini james fatou xt of the indiv idual patie nt: https :[email or web address] [email or web address] book. nm.or g/gen derx Not Available [facility] (Lab) [address], [place], [address], 12/24/2024 11:27:17 12/24/19 25 12/23/2024 TSH, REFLE X FREE T4 TSH 1.98 uIU/m L 0.30-5 .33 Not Available [facility] (Lab) [address] , [place], [address], 12/24/2024 11:27:17 12/24/19 25 12/23/2024 CMP(C OMPRE HENSI VE METAB OLIC PANEL ) sodium 138 mmol/ L 133-14 6 Not Available [facility] (Lab) [address], [place], [address], 12/24/2024 11:27:18 12/24/19 25 12/23/2024 CMP(C OMPRE HENSI VE METAB OLIC PANEL ) potassium 4.2 mmol/ L 3.5-5. 1 Not Available [facility] (Lab) [address], [place], [address], 12/24/2024 11:27:18 12/24/19 25 12/23/2024 CMP(C OMPRE HENSI VE METAB OLIC PANEL ) chloride 105 mmol/ L 98-107 Not Available [facility] (Lab) [address], [place], [address], 12/24/2024 11:27:18 12/24/19 25 12/23/2024 CMP(C OMPRE HENSI VE METAB OLIC PANEL ) carbon dioxide 27 mmol/ L 21-31 Not Available [facility] (Lab) [address], [place], [address], 12/24/2024 11:27:18 12/24/19 25 12/23/2024 CMP(C OMPRE HENSI VE METAB OLIC PANEL ) anion gap 6 mmol/ L 4-13 Not Available [facility] (Lab) [address], [place], [address], 12/24/2024 11:27:18 12/24/19 25 12/23/2024 CMP(C OMPRE HENSI VE METAB OLIC PANEL ) blood urea nitrogen 12 mg/dL 7-25 Not Available [facility] (Lab) [address], [place], [address], 12/24/2024 11:27:18 12/24/19 25 12/23/2024 CMP(C OMPRE HENSI VE METAB OLIC PANEL ) creatinine 0.53 mg/dL 0.60-1 .30 low Not Available [facility] (Lab) [address] [place], [address], 12/24/2024 11:27:18 12/24/19 25 12/23/2024 CMP(C OMPRE HENSI VE METAB OLIC PANEL ) egfrcr (CKD-epi 2020) >90 mL/mi n/1.7 3_m2 >=60 Not Available [facility] (Lab) [address], [place], [address], 12/24/2024 11:27:18 12/24/19 25 12/23/2024 CMP(C OMPRE HENSI VE METAB OLIC PANEL ) calcium 9.1 mg/dL 8.3-10 .5 Not Available [facility] (Lab) [address], [place], [address], 12/24/2024 11:27:18 12/24/19 25 12/23/2024 CMP(C OMPRE HENSI VE METAB OLIC PANEL ) glucose 79 mg/dL 70-100 Not Available [facility] (Lab) [address], [place], [place], [address], 12/24/2024 11:27:18 12/24/19 25 12/23/2024 CMP(C OMPRE HENSI VE METAB OLIC PANEL ) protein, total 6.8 g/dL 6.4-8. 3 Not Available [facility] (Lab) [address], [place], [address], 12/24/2024 11:27:18 12/24/19 25 12/23/2024 CMP(C OMPRE HENSI VE METAB OLIC PANEL ) albumin 4.3 g/dL 3.5-5. 0 Not Available [facility] (Lab) [address], [place], [address], 12/24/2024 11:27:18 12/24/19 25 12/23/2024 CMP(C OMPRE HENSI VE METAB OLIC PANEL ) ALT 12 units /L 9-43 Not Available [facility] (Lab) [address], [place], [address], 12/24/2024 11:27:18 12/24/19 25 12/23/2024 CMP(C OMPRE HENSI VE METAB OLIC PANEL ) alkaline phosphatase 48 units /L 34-104 Not Available [facility] (Lab) [address], [place], [address], 12/24/2024 11:27:18 12/24/19 25 12/23/2024 CMP(C OMPRE HENSI VE METAB OLIC PANEL ) AST 17 units /L 13-39 Not Available [facility] (Lab) [address] [place], [address], 12/24/2024 11:27:18 12/24/19 25 12/23/2024 CMP(C OMPRE HENSI VE METAB OLIC PANEL ) bilirubin, total 0.3 mg/dL 0.2-1. 2 Not Available [facility] (Lab) [address] [place], [address], 12/24/2024 11:27:18 12/24/19 25 12/23/2024 LIPID PANEL ,AMA (LDL- CALC) total cholesterol 132 mg/dL 0-199 Not Available [facility] (Lab) [address] [place], [address], 12/24/2024 11:27:18 12/24/19 25 12/23/2024 LIPID PANEL ,AMA (LDL- CALC) triglyceride s 122 mg/dL 0-150 NCEP Refer ence Value s for Trigl yceri herminia: Vikki l: <150 mg/dL Borde rline High: 150 - 199 mg/dL High: 200 - 499 mg/dL Very High: >/= 500 mg/dL Not Available [facility] (Lab) [address] [place], [address], 12/24/2024 11:27:18 12/24/19 25 12/23/2024 LIPID PANEL ,AMA (LDL- CALC) HDL cholesterol 54 mg/dL >40 Not Available [facility] (Lab) [address] [place], [address], 12/24/2024 11:27:18 12/24/19 25 12/23/2024 LIPID PANEL ,AMA (LDL- CALC) LDL cholesterol 58 mg/dL 0-99 Cutof f value s recom lawrence d by the Natio nal Maryuri stero l Educa tion Progr am: ISABELLE ABLE: Maryuri stero l <200 mg/dL LDL <100 mg/dL BORDE RLINE : Maryuri stero l 200-2 39 mg/dL LDL 101-1 59 mg/dL HIGHE R RISK: Maryuri stero l >240 mg/dL LDL >160 mg/dL , HDL <40 mg/dL Not Available [facility] (Lab) [address], [place], [address], 12/24/2024 11:27:18 12/24/1912/23/2024 LIPID PANEL ,AMA (LDL- CALC) non-HDL cholesterol 78 mg/dL no refere nce range A reaso nable goal for non-H DL maryuri stero l is one that is 30 mg/dL highe r than the LDL maryuri stero l goal. Not Available [facility] (Lab) [address], [place], [address], 12/24/2024 11:27:18 12/24/1912/23/2024 LIPID PANEL ,AMA (LDL- CALC) chol/HDL ratio 2.4 . 0.0-5. 0 On November 11, 2022, [facility] labor atori nery lyon ed the equat ion for calcu latin g estim ated low-d ensit y lipop rotei n-cho leste rol (LDL- C) from the Fried mello equat ion to the Sara vega/Anthony gallegos equat ion. This new equat ion is only valid for lipid panel s with trigl yceri herminia < 400 mg/dL . Afshin blandonon strat ed that this new equat ion will impro ve the accur acy of LDL-C , espec ially in scena arceo when LDL-C carrie ntrat ions are relat ively low (< 100 mg/dL ), trigl yceri hermniia are eleva bimal, or patie nt is non-f astin g. Refer ences : - Bridger Paulson, Arnaldo Heck , Duong putnam, Renny Arita, Renny hagen, Akira Prasad [facility] , and Gustavo Merritt . 2013. Comp ariso n of a Novel Metho d vs the Fried mello Equat ion for Estim ating Low-D ensit y Lipop rotei n Maryuri stero l Level s from the Stand annamarie Lipid Profemerson ta. ALDAIR: The Journ al of the Ameri can Medic al Assoc iatio n 310 (19): 2060- . - Shaka anne V, Aimee J, Cris anne A, Joie M, Karen chowdhury R, Genia anne E, Shanice vela RS, René SR, Sara n SS. Fast ing Versu s Nonfa sting and Low-D ensit y Lipop rotei n Maryuri stero l Accur acy. Circu latio n. 2017Jul 21;137 (1):1 0-19. Not Available [facility] (Lab) [address], [place], [address], 12/24/2024 11:27:18 12/24/19 25 12/23/2024 VITAM IN D, 25-OH (TOTA L D2/D3 ) vitamin D, 25-hydroxy, total 23.8 NG/mL 30.0-1 00.0 low Sugge stive of Defic iency : <20 ng/mL Sugge stive of Insuf ficie ncy: 20-29 ng/mL Sugge stive of Suffi cienc y: 30-10 0 ng/mL Sugge stive of Toxic ity: >150 ng/mL Not Available [facility] (Lab) [address], [place], [address], 12/24/2024 11:27:19 12/24/19 25 12/23/2024 HEMOG LOBIN A1C hemoglobin A1C 5.4 % 4.0-5. 6 The Ameri can Diabe sakina Assoc iatio n recom mends that a prima ry goal of thera py shoul d be a HBA1C of < 7% and that physi cians shoul d reeva luate the treat ment regim en in patie nts with HBA1C value s consi stent ly > 8%. <5.7% Vikki l 5.7 - 6.4% Incre ased risk for diabe sakina >=6.5 % Diagn ostic of diabe sakina <7.0% Goal of thera py >8.0% Actio n oral wilson Not Available [facility] (Lab) [address], [place], [address], 12/24/2024 11:27:19 09/06/19 24 09/05/2023 US, maverick pierce, 1st trime ster No observ ation record ed. [email or web address] [address] [facility], [place], [address], 09/06/2023 15:55:43 09/07/19 24 09/07/2023 US, maverick pierce, nucha l trans lucen cy No observ ation record ed. [email or web address] [place] [address], [place], [address], 09/07/2023 18:24:52 09/07/19 24 09/07/2023 US, maverick pierce, follo w-up No observ ation record ed. [address], [place], [address], 09/08/2023 16:09:40 09/09/19 24 09/09/2023 US, pelvi s No observ ation record ed. [email or web address] [address], [place], [address], 09/09/2023 22:11:20 09/10/19 24 09/09/2023 US, pelvi s No observ ation record ed. [email or web address] [address] [facility], [place], [address], 09/14/2023 15:52:55 09/17/19 24 09/17/2023 US, maverick pierce, trans vagin al No observ ation record ed. [email or web address] [place] [address], [place], [address], 09/17/2023 15:20:45 09/17/19 24 09/17/2023 US, obste tric, trans vagin al No observ ation record ed. [email or web address] [address], [place], [address], 09/18/2023 17:07:36 09/29/19 24 09/29/2023 US, obste tric, trans vagin al No observ ation record ed. [email or web address] [place] [address], [place], [address], 09/29/2023 18:23:22 09/29/19 24 09/29/2023 US, obste tric, trans vagin al No observ ation record ed. [email or web address] [address], [place], [address], 10/02/2023 10:11:17 01/14/20 25 01/12/2025 [email or web address] , diagn ostic , digit al, bilat eral No observ ation record ed. [address], [place], [address], 01/16/2025 18:05:28 Result Notes None recorded. Problems Name Problem SNOMED Code Status Onset Date Resolution Date Notes Provider Name and Address Organization Details Recorded Time 05318723 Completed 202309/14/2023 Lucila montilla [facility] 4 10:19:17 Uterine scar from previous surgery affecting 65265605 Active 2023 hx of LTCS for pelvic floor dysfuncti on patient desires TOLAC; discussed at new OB visit Lucila montilla [facility] 4 10:20:21 Uterine scar from previous surgery affecting 39291986 Completed 2023 hx of LTCS for pelvic floor dysfuncti on patient desires TOLAC; discussed at new OB visit Lucila montilla [facility] 4 10:20:21 Problem Notes None recorded. Procedures Surgical History Date Name Laterality Status Provider Name and Address Organization Details Recorded Time 09/21/19 24 SUCTION DILATION & CURETTAGE (SURG) completed Nury Shelby [facility] 09/22/2023 11:39:00 08/07/19 24 Date of Last Pap Smear completed [facility] 08/07/2023 17:05:28 06/22/20 20 section completed [facility] 08/07/2023 17:06:36 07/20/19 13 extraction of wisdom tooth completed [facility] 08/07/2023 17:06:20 biopsy of breast completed KLARISSA Aceves [address], [place], [address], [facility] 09/16/2024 09:24:51 Imaging Results None recorded. Procedure Notes None recorded. Medical Equipment None Reported. Allergies Allergen ID Allergen Name Allergen Category Reaction Reaction Severity Criticality Documentation Date Start Date Code Code System Note Provider Name and Address Organization Details Recorded Time 83280 Product containin g penicilli n (product) medicatio n rash Not available Not available 07/06/[address] [facility] 3 17:14:02 Medications Name Sig Start Date Stop Date Status Note LastModified by Organization Details LastModified Time metronidazo le 0.75 % (37.5 mg/5 gram) vaginal gel INSERT 1 APPLICATO RFUL VAGINALLY EVERY DAY AT BEDTIME 08/07 completed Not Available Not Available Not Available metronidazo le 500 mg tablet TAKE 1 TABLET BY MOUTH EVERY 12 HOURS FOR 7 DAYS active Not Available Not Available No t Available Methergine 0.2 mg tablet Take 1 tablet every 8 hours by oral route. 10/26 completed Not Available Not Available Not Available metronidazo le 10/26 completed Not Available Not Available Not Available cephalexin 10/26 completed Not Available Not Available Not Available cholecalcif alycia (vitamin D3) 1,250 mcg (50,000 unit) capsule TAKE 1 CAPSULE EVERY WEEK BY ORAL ROUTE. active Not Available Not Available No t Available Lo Loestrin Fe 1 mg-10 mcg (24)/10 mcg (2) tablet TAKE 1 TABLET BY MOUTH EVERY DAY active Not Available Not Available No t Available Gummies 10/26 completed Not Available Not Available Not Available Vitals Date Recorded Body height Body mass index (BMI) Body weight Systolic And Diastolic Systolic And Diastolic Provider Name and Address Organization Details Last Updated DateTime 09/15/2024 165.1 cm 27.5 kg/m2 34762.74 g 138/82 mm[Hg] 130/80 mm[Hg] JOEY Grubbs [facility] 17:14:10 Date Recorded Body height Body mass index (BMI) Body weight Systolic And Diastolic Provider Name and Address Organization Details Last Updated DateTime 09/18/2023 165.1 cm 26.5 kg/m2 17859.19 g 122/81 mm[Hg] Malena Barrera [facility] 09/18/2023 13:02:18 Date Recorded Body height Body mass index (BMI) Body weight Systolic And Diastolic Provider Name and Address Organization Details Last Updated DateTime 10/27/2023 165.1 cm 27.3 kg/m2 28766.15 g 114/77 mm[Hg] Cara Cole [facility] 10/27/2023 16:32:15 Social History Question Answer Notes LastModified by Organizat ion Details LastModified Time Tobacco Smoking Status Never Smoker Shital montilla, [facility] 08/07/2023 17:05:47 Do You Have An Advance Directive? No [email or web address] Information n ot available 09/15/2024 If You Are , What Was Your Level Of Alcohol Consumption Prior To ? Occasional [email or web address] Information not available 08/07/2023 Are You Blind Or Do You Have Difficulty Seeing? No [email or web address] Information n ot available 08/07/2023 What Is Your Level Of Caffeine Consumption? Moderate [email or web address] Information not available 09/15/2024 How Much Tobacco Do You Chew? None [email or web address] Information not available 09/15/2024 In The 14 Days Before Symptom Onset, Have You Had Close Contact With A Laboratory-confirm ed COVID-19 While That Case Was Ill? No [email or web address] Information n ot available 08/07/2023 In The 14 Days Before Symptom Onset, Have You Had Close Contact With A Person Who Is Under Investigation For COVID-19 While That Person Was Ill? No [email or web address] Information not available 08/07/2023 Have You Been To An Area Known To Be High Risk For COVID-19? No [email or web address] Information not available 08/07/2023 Are You Deaf Or Do You Have Serious Difficulty Hearing? No [email or web address] Information not available 08/07/2023 What Type Of Diet Are You Following? REGULAR [email or web address] Information n ot available 08/07/2023 What Is The Highest Grade Or Level Of School You Have Completed Or The Highest Degree You Have Received? GN10551-7 [email or web address] Information not available 09/15/2024 Are There Any Guns Present In Your Home? No [email or web address] Information not available 09/15/2024 Do You Use Protection During Sex? Usually [email or web address] Information not available 09/15/2024 Do You Use Your Seat Belt Or Car Seat Routinely? Yes [email or web address] Information not available 08/07/2023 Do You Have Smoke And Carbon Monoxide Detectors In Your Home? Yes [email or web address] Information not available 08/07/2023 How Much Tobacco Do You Smoke? No [email or web address] Information not available 09/15/2024 Do You Use Sunscreen Routinely? Yes [email or web address] Information not available 08/07/2023 Has Tobacco Cessation Counseling Been Provided? No [email or web address] Information not available 08/07/2023 Have You Used IV Drugs? No [email or web address] Information not available 09/15/2024 Do You Have Difficulty Walking Or Climbing Stairs? No Information not available 08/07/2023 Sex: Unknown Functional Status Question Answer Note LastModified by Organizat ion Details LastModified Time Do you use any illicit or recreational drugs? No [email or web address] Information not available 08/07/2023 Do you or have you ever used any other forms of tobacco or nicotine? No [email or web address] Information not available 08/07/2023 What is your level of alcohol consumption? Occasional [email or web address] Information not available 09/15/2024 Are you able to walk? YESWOREST [email or web address] Information not available 08/07/2023 Are you able to care for yourself independently? Yes [email or web address] Information not available 08/07/2023 What is your occupation? [employer] [email or web address] Information not available 09/15/2024 Do you have difficulty dressing, bathing, grooming, or toileting? No [email or web address] Information not available 08/07/2023 What is your exercise level? Occasional Information not available 08/07/2023 Mental Status Question Answer Note LastModified by Organization D etails LastModified Time Do you feel stressed (tense, restless, nervous, or anxious, or unable to sleep at night)? [id number] [email or web address] Information not available 08/07/2023 Family History Relationship Description Onset Age of this Age Resolved Age Notes LastModified by Organization Details LastModified Time Maternal Grandmother Malignant tumor of breast [email or web address] Not available 2022 17:22:26 Paternal Grandmother Diabetes mellitus [email or web address] Not available 2022 17:22:37 Father Hyperlipidem ia [email or web address] Not available 08/21 16:59:26 Mother Hypertensive disorder [email or web address] Not available 2022 17:23:16 Medical History Condition Response Other N Blood Transfusion N Dermatologic Disorders N Gestational Diabetes N Anxiety Disorder N Autoimmune disease N Arthritis N Polyps N Infertility N Acid Reflux (GERD) N Cancer N Varicosities N Stroke N Neurologic/Epilepsy N Fibromyalgia N Headaches N Kidney Disease N Heart Problems N Kidney or Bladder Problems N Eating Disorder N Art (IVF or FET) N Hepatitis/Liver Disease N No Past Medical History N Urinary Tract Infection N Asthma N Trauma/Violence N Thrombophilias N Allergies (Food, seasonal, environmental ) N Breast Cancer N Drug/Latex Allergies/Reactions Y Lung Disease N Defects or Inherited Disease N Breast Problem N Hematologic disorders N Anesthesia Complications N History of STI N Deep Vein Thrombosis N Polycystic ovary syndrome N History of abnormal pap N Endometriosis N High Cholesterol N Thyroid Problems N GI Problems N Anemia N Psychiatric Illness N Ovarian Cancer N Diabetes N Pulmonary (TB, Asthma) N Eczema N Abuse/Domestic Violence N Depression/ depression N Heart Disease N Pre-Eclampsia N Hypertension N Osteoporosis N Gynecological History Statement/Question Response Flow Light Date of LMP 09/03/2024 On BCP's at Conception? N N STIs/STDs N HPV Vaccine N Duration of Flow (days) 5 Current Control Method BCPs Age at First Child 24 Sexually Active? Y Date of Last Pap Smear 08/07/2023 Sexual Problems? N Desired Control Method BCPs LMP Approximate N Obstetrics History GPAL:G 2 P 1 0 1 1 Type Value Full Term 1 Induced 1 Living 1 Total 2 Past Encounters Encounter ID Performer Location Encounter Start Date Encounter Closed Date Diagnosis/Indication Diagnosis SNOMED-CT Code Diagnosis ICD10 Code Diagnosis Note [id number] Taran Zuniga MD [place] [address] [address] 07/14/2023 16:45:05 07/14/2023 17:56:05 Bacterial vaginosis 803765886 N76.0 this patient is a 27-year-ol d female who presents for vaginal discharge. She is some foul-smell ing vaginal discharge. It is mireles times. She denies any vulvar pruritus. A swab was obtained. The distal vagina and vulva appeared normal. Patient is concerned about an ectopic . She is lower abdominal pain. She has a 5 week gestation per her last menstrual. She is a positive test. We obtained an informal ultrasound . She is a 5 week intrauteri ne gestationa l sac. She will follow-up in 2 weeks for Ob screening. [id number] Taran Zuniga MD [place] [address] [address] 07/14/2023 17:33:06 07/15/2023 08:42:24 [id number] Taran Zuniga MD [place] [address] [address] 08/07/2023 16:17:15 08/07/2023 17:20:23 test positive 790141870 Z32.01 [id number] [facility] [address],[place] [address] 08/07/2023 16:19:03 08/10/2023 17:59:42 Amenorrhea 92743863 N91.2 discussed handout, precaution s and officehx section in [place] will have pt review with [facility] vitaminfol low up 12 weeks new ob nad first lookunsure about carrier/ NIPS [id number] Taran Zuniga MD [place] [address],[place] [address] 09/07/2023 14:30:28 09/07/2023 15:13:55 screening 723755278 Z36.82 Z3A.13 [id number] SAVANNAH BLACKWOOD MD [place] [address],[place] [address] 09/07/2023 14:32:56 09/08/2023 08:46:26 Routine care 593440780 Z34.91 Bleeding f rom female genital tract during [id number] 3541134 O46.91 Uterine sc ar from previous surgery affecting 98789619 O34.29 Gestation period, 13 weeks 71503384 Z3A.13 [id number] Taran Zuniga MD [place] [address],[place] [address] 09/17/2023 11:10:45 09/17/2023 11:48:15 Missed miscarriage 35326255 O02.1 Z3A.12 [id number] SAVANNAH BLACKWOOD MD [place] [address],[place] [address] 09/18/2023 12:46:58 09/24/2023 15:31:36 Retained products of conception 797654806 O72.2 - pelvic US demonstrat es thickened endometria l stripe with vascularit y, c/w retained products of conception - discussed management options including r/b of expectant vs medical vs surgical management - patient desires surgical management of retained products, will schedule for suction D&C [id number] Taran Zuniga MD [place] [address],[place] [address] 09/29/2023 16:02:15 09/29/2023 16:47:25 Delayed AND/OR secondary hemorrhage 07530762 O72.2 [id number] SAVANNAH BLACKWOOD MD [place] [address] [address] 10/27/2023 16:21:03 10/28/2023 09:28:08 Incomplete miscarriage 570851023 O03.4 - s/p suction D&C 09/21/23- bleeding resolved s/p methergine - overall feeling well, coping appropriat daphne Contracept ion care management 938513378 Z30.9 Discussed with patient risks, benefits, and alternativ es of contracept ion. Discussed all options, including natural family planning, condoms, combined oral contracept edgar, contracept jazmín patch, Nuva-ring, Depo-Prove ra, Nexplanon, intrauteri ne device, and sterilizat ion (tubal ligation, vasectomy) . Advised that of the above listed options, only condoms can prevent sexually transmitte d infections and that condoms can be used together with any form of contracept ion. Patient reports that she has used OCPs in the past. After extensive counseling , patient at this time desires OCPs. [id number] KLARISSA Aceves [place] [address] [address] 09/15/2024 16:59:02 09/16/2024 13:32:04 Gynecologic examination 25889304 Z01.419 WWEBC - OCP, refills sent x 12 months, r/b/a reviewedPa p - done todaySTI screen - declinedRo utine labs - PCPRTC in 1 yr or sooner if needed It is strongly advised to have an annual flu shot and up can obtain at most pharmacies . If you have not had a TDap shot in the last 10 years you should obtain one as well. Discussed with patient & provided with informatio n regarding the HPV vaccine if applicable . Encourage safe sexual practices, to use condoms and limit partners if not already in a monogamous relationsh ip. Do monthly self breast exams. BRCA testing is now available for patients with strong genetic history of female cancer. If interested contact the office. Engage in regular exercise. Avoid tobacco and illicit drugs. This lifestyle behavior pattern will lead to less health conditions and longer life span. If BMI greater than 25 dietary consult advised. Questions answered. Breast lump 58905536 N63 .0 Vaginitis 84369355 N76.0 vaginitis panel sentrx sent for BV, r/b/a reviewedvu lvar care guidelines discussed Contracept ion care management 013968878 Z30.9 Health Concerns Section Related Observation LastModified by Organization Detai ls LastModified Time None Recorded Concern Status LastModified by Organization Details LastModified Time None Recorded Advance Directives Directive N: Payers Insurance Date Sequence Insurance Name Policy Number Policy Murray Covered Member ID Murray Member ID Guarantor Name 09/12/2024 1 IVETH ABDALLA-LUCIANO (PPO) [id number] 2 Jose Tolbert [id number] Leandra Tolbert 09/18/2023 1 *SELF PAY* Am brittni Tolbert OBGyn Episode Ob Episode Information Episode Created Date Number of Fetuses Patient Bloodtype Patient rh Status Prepregnancy Weight lbs Domestic Partner Domestic Partner Phone Father Name Glue Cook Status 07/14/20 23 1 CLOSED Fetus Data First Name Last Name Admitted to NICU Weight (g) Sex Living Outcome Pediatric Complications Fetus ID Race Codes Race Delivery Type 3373.36 [id number] M Full Term [id number] Primary Evelio Calculation Initial Evelio Date Initial Exam Date Initial Exam Provider Initial Ultrasound Date Last Menstrual Period Date Ultra Sound Weeks Gestation 0 Eighteen To Twenty Week Evelio Update Ultra Sound Date Fundal Height At Umbil Quickening Date Ultra Sound Latest Weeks Gestation Final Evelio Confirmed By Final Evelio Confirmed Date Final Evelio Date Ultra Sound Latest Days Gestation 0 0 Menstrual History Last Menstrual Date Menses Monthly On Bcp Conception Prior Menses Frequency Hcg Plus Date Menarche Onset Age Delivery Information Delivery Date Delivery Type Labor Anesthesia Weeks Gestation Incision Type Labor Labor Length Hrs Delivered By Post Complications Tubal Sterilization Discharge Date Comments 0 40 Junior Discharge Information Feeding Method Contraceptive Method Maternal HG B and HCT Levels Ob Episode Information Episode Created Date Number of Fetuses Patient Bloodtype Patient rh Status Prepregnancy Weight lbs Domestic Partner Domestic Partner Phone Father Name Glue Cook Status 09/07/19 24 1 160 CLOSED Fetus Data First Name Last Name Admitted to NICU Weight (g) Sex Living Outcome Pediatric Complications Fetus ID Race Codes Race Delivery Type M , Spontane ous [id number] Problems Problem Notes Problem Name Start Date End Date Resolution Snomed Code Not e Uterine scar from previous surgery affecting 09/07/2023 [id number] hx of LT CS for pelvic floor dysfunction patient desires TOLAC; discussed at new OB visit Evelio Calculation Initial Evelio Date Initial Exam Date Initial Exam Provider Initial Ultrasound Date Last Menstrual Period Date Ultra Sound Weeks Gestation 03/10/2024 09/07/2023 06/04/2023 0 Eighteen To Twenty Week Evelio Update Ultra Sound Date Fundal Height At Umbil Quickening Date Ultra Sound Latest Weeks Gestation Final Evelio Confirmed By Final Evelio Confirmed Date Final Evelio Date Ultra Sound Latest Days Gestation 0 03/10/20 24 0 Pre-ryan Flowsheet Flowsheet Date 09/07/2023 Zablaa Score Blood Edema Fundus Height Fundus Units Glucose Ketones Leukocytes Nitrite Labor Signs Protein Cervic Dilation Cervic Effacement Cervic Station Type Weight in lbs Pre/Post Dialysis Refused Weight [id number] BP Diastolic BP Location Tested BP Systolic BP Type 72 139 Fetus Heart Rate Present A 159 Fetus Movement A No Comments Presents to establish prenat al care. has been complicated by bleeding over the past 3 days, now resolving. Was seen at [place] on Thursday, IUP with +FHT, confirmed today on office US. NT/NB wnl. Desires NIPT, will draw today. Patient just moved from [place] with her ; during G1 , had c section for vaginismus but would like to try TOLAC during this . R/b discussed including less than 1% risk of uterine rupture with a history of 1 prior LTCS. Patient voices understanding. PMH/PSH otherwise unremarkable. Due for pap smear, patient desires to wait due to recent spotting. Will discuss at next visit vs defer to . RTC 3 weeks. Menstrual History Last Menstrual Date Menses Monthly On Bcp Conception Prior Menses Frequency Hcg Plus Date Menarche Onset Age 1106/04/2025 Genetic Screening And Infection History Question Response Note Mental Retardation/Autism false Patient's Age Will Be 35 Years Or Older At Estim ated Date of Delivery false Thalassemia (Khmer, Yakut, Mediterranean, Or Background): MCV < 80 false Neural Tube Defect (Meningomyelocele, Spina Bifi da, Or Anencephaly) false Congenital Heart Defect false Down Syndrome false Ron-Sachs (eg, Zoroastrian, Cajun, Albanian-[place]) f alse Carlyle Disease false Sickle Cell Disease Or Trait () false Hemophilia Or Other Blood Disorders false Muscular Dystrophy false Cystic Fibrosis false Iman's Chorea false Intellectual Disability/Autism false If Yes, Was Person Tested For Fragile X? false Other Inherited Genetic Or Chromosomal Disorder false Maternal Metabolic Disorder (eg, Type 1 Diabetes , PKU) false Patient Or Baby's Father Had A Child With Defects Not Listed Above false Recurrent Loss, Or A Stillbirth false Medications (including Suppl ements, Vitamins, Herbs, OTC Drugs), Illicit/Recreational Drugs, Alcohol false If Yes, Agent(s) And Strength/Dosage false Any Other Genetic History false Live With Someone With TB Or Exposed To TB false Patient Or Partner Has History Of Genital Herpes false Rash Or Viral Illness Since Last Menstrual Perio d false History Of STD, Gonorrhea, Chlamydia, HPV, Syphi lis false Other Infection History false History of HIV false History of Hepatitis false Prior GBS-infected child false Hemoglobinopathy Or Carrier false Other Structural Defect false Recent Travel History Outside of Country false Delivery Information Delivery Date Delivery Type Labor Anesthesia Weeks Gestation Incision Type Labor Labor Length Hrs Delivered By Post Complications Tubal Sterilization Discharge Date Comments 4 13.5 Miscarri e d at [facility] Discharge Information Feeding Method Contraceptive Method Maternal HG B and HCT Levels
[2025-02-14] MEDS: LACTATED RINGERS 1,000 ML 30 ML IV CONT ×2 (09:30→11:50)
[2025-02-14] MEDS: ACETAMINOPHEN 500 MG TABLET 1000 MG PO (09:30)
[2025-02-14 10:10] LABS: BEDSIDEPREGUCG Negative (Negative)
--- NOTE | 2025-02-14 10:46 | WPDHPUPDATE1 ---
History and Physical Update Update Date/Time: 02/14/25 10:46 - Excisional biopsy of left breast mass, possible adjacent tissue transfer History and Physical has been reviewed, including an updated exam of the patient. There are NO changes in the patient's condition. Risks, benefits, and alternatives have been discussed and questions answered. Patient agrees to proceed with procedure.
--- NOTE | 2025-02-14 11:03 | WPDANESEPPF ---
Anes - Initial Pre Proc Eval Procedure: Operation Date: 02/14/25 10:30 Proposed Procedures p Excisional Biopsy Left Breast Mass, Possible Adjacent Tissue Transfer - Daxa Ojeda MD Date/Time: 02/14/25 11:03 Surgeon: Daxa Ojeda MD Pre Op Diagnosis: lump left breast Patient Data Age: 29 Gender: F Height: 1.68 m Weight: 75.4 kg Last Vital Signs Temp 98.6 F 02/14/25 10:00 Pulse 82 02/14/25 10:00 Resp 16 02/14/25 10:00 BP 115/61 02/14/25 10:00 Pulse Ox 99 02/14/25 10:00 O2 Del Method Room Air 02/14/25 10:00 Allergies Allergy/AdvReac Type Severity Reaction Status Date / Time Penicillins AdvReac Rash Verified 02/14/25 10:03 Home Medications ?Medication ?Instructions ?Recorded ?Confirmed ?Type norethindrone 1 mg-ethinyl 1 tablet PO DAILY 02/07/25 02/14/25 History estradiol 10 mcg (24)-iron 10 mcg(2) tablet (Lo Loestrin Fe) Laboratory Tests 02/14/25 10:00 POC Urine HCG, Qual Negative (Negative) Patient hx anesthesia problems: none Family hx anesthesia problems: none Results Review: All pre-operative results and documents have been reviewed as part of the pre-operative evaluation. [facility] Social History Social History Smoking status: Never smoker Second hand tobacco smoke exposure: No Alcohol intake: current Alcohol use details: RARE WHEN NOT Substance use: never Substance use type: does not use Do You Feel Safe in your Home?: Yes Lack of Transportation: No Lack of Food: Never True Current Housing: I Have Housing Concerned About Future Housing: No Difficulty Paying Gas/Electric Bills: No Difficulty Paying for Meds: No Currently Unemployed: No Education: Bachelor's Degree Difficulty w/ Childcare or Family Care: No Living arrangements: with family Additional living arrangements comments: AND SON Spiritual care concerns: No Anes - Eval Final PreProcedure Day of Procedure 02/14/25 11:03 Patient weight: overweight Lungs: normal air movement Airway: Mallampati scale class II Neurological: alert and oriented Last oral intake: >/= 8 hours ASA classification: II Emergent: no Anesthetic plan: proceed Anesthesia type and monitoring: general LMA and standard monitoring Results Review: All pre-operative results and documents have been reviewed as part of the pre-operative evaluation. BMI 26. [facility], no cp or sob. Informed Consent: The patient's anesthetic plan and its attendant risks and benefits were discussed with the patient/family/POA. Questions were solicited and answers provided to the satisfaction of the patient/family/POA.
[2025-02-14] MEDS: BUPIVACAINE/EPINEPHRINE 0.5% 50 ML VIAL 30 ML INFILTRATE (11:07)
[2025-02-14] MEDS: ceFAZolin 2 GM in SODIUM CHLORIDE 0.9% IV 50 ML 100 ML IVPB (11:15)
--- NOTE | 2025-02-14 11:34 | S_PTH ---
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
--- NOTE | 2025-02-14 11:42 | W.PM.PROC2 ---
Procedure Note - Detailed Date of Procedure 02/14/25 Pre-op Diagnosis Painful left breast mass, previous biopsy proven fibroadenoma Post-op Diagnosis Same Procedure Performed Excisional biopsy of palpable left breast mass Surgeon Daxa Ojeda MD Anesthesia MAC Description of Procedure Patient was identified in the preoperative holding area brought to the operating room sleep. She is laid supine in the OR table sequential compression devices were applied. Anesthesia was induced without difficulty. The left breast was prepped and draped in a sterile fashion. The mass was easily palpable in the upper outer quadrant area and a small incision was made overlying this area with a 15 blade. Dissection was carried down through the subcutaneous tissue into the breast tissue and the mass was excised EN bloc using Bovie electrocautery. The mass was sent to pathology as a fresh specimen. The cavity was irrigated with saline hemostasis was assured. The deep dermal layer was closed with interrupted 3-0 Vicryl and the skin was then closed with 4-0 Monocryl in a subcuticular fashion. Dermabond was applied followed by a sterile dressing and a surgical bra. Patient was awoken from anesthesia taken to the recovery area in stable condition. All needles, instruments, and sponge counts were correct as reported by the operating room staff. Patient tolerated the procedure well with no immediate complications. Estimated Blood Loss 3 Pathology Yes Complications No immediate complications Condition Stable Disposition PACU [facility] Billing Surgery - Charge Forward: Surgery Billing (CPT 28582)
[2025-02-14] MEDS: oxyCODONE HCL (*CRX) 5 MG TAB IR PO (13:19)
== END 2025-02-14 13:57 | disposition home or self-care (01) ==
PROVIDERS: Visit Provider Surgery
PROC: (CPT 19120; principal; 2025-02-14 10:30)
DX: D24.2 Benign neoplasm of left breast (principal)
CPT/HCPCS: 19120; 88305; J0690; A9270; J1100; J2003; J2250; J2405; J2704; J3010; J7120